=== PATIENT | male | born 1935 | race Caucasian/White ===

== ENCOUNTER 2019-09-23 11:08 | Emergency (ER) | payer MEDICARE, BC ==
--- NOTE | 2019-09-23 12:04 | EDM.PDOC ---
ED HPI GENERAL MEDICAL PROBLEM - General Chief Complaint: Syncope Stated Complaint: [facility] Time Seen by Provider: 09/23/19 11:19 Source of Information: Reports: Patient, Family (), RN Notes Reviewed History Limitations: Reports: No Limitations - History of Present Illness INITIAL COMMENTS - FREE TEXT/NARRATIVE: Patient is an 84-year-old male who is brought into the ED via [facility] for the evaluation of a unresponsive episode at home. At around 1015 this morning, the patient was eating oatmeal for breakfast, and shortly afterwards he told his he was not really feeling well, he began to feel little bit nauseous and felt like he was going to throw up. This was when according to his his eyes rolled into the back of his head, the patient head dropped back and he went unresponsive, she states that this went on for around 5 minutes for what she thought. She was not sure if she should do CPR not, and she states she could not get him on the ground so she given about 10- 20 pumps on the chair, she states that it was mostly into his abdomen however due to him being in the chair. He states that he shortly came to before the ambulance got there. Patient is alert and oriented to place and time and person at this time, there are no obvious neurological deficits noted, he does have a history of a stroke in 2009. Patient's not complaining of any fevers or chills, he has some mild dizziness and a slight headache. The notes that he is acting appropriate for himself, and is not having any worsening deficits noted by herself. - Related Data Allergies Allergy/AdvReac Type Severity Reaction Status Date / Time No Known Allergies Allergy Verified 09/23/19 11:30 Home Meds: Home Meds Clopidogrel [Plavix] 75 mg PO DAILY 09/23/19 [History] Docusate Sodium [Colace] 100 cap PO BID 09/23/19 [History] Famotidine [Acid Controller] 20 mg PO DAILY 09/23/19 [History] Loratadine [Claritin] 20 mg PO DAILY 09/23/19 [History] Metoprolol Succinate [Toprol Xl] 100 mg PO DAILY 09/23/19 [History] Potassium Chloride 10 meq PO DAILY 09/23/19 [History] amLODIPine [Norvasc] 5 mg PO DAILY 09/23/19 [History] hydroCHLOROthiazide [Hydrochlorothiazide] 25 mg PO DAILY 09/23/19 [History] Past Medical History HEENT History: Reports: Cataract, Impaired Vision Other HEENT History: wear glasses Cardiovascular History: Reports: Afib, Hypertension Respiratory History: Reports: Asthma Musculoskeletal History: Reports: Back Pain, Chronic Neurological History: Reports: CVA, Other (See Below) Other Neuro History: dementia. RT sided stroke in 2010 per Psychiatric History: Reports: Dementia - Past Surgical History HEENT Surgical History: Reports: Adenoidectomy, Tonsillectomy GI Surgical History: Reports: Hernia, Inguinal Social & Family History - Tobacco Use Smoking Status *Q: Former Smoker Years of Tobacco use: 10 Used Tobacco, but Quit: Yes Month/Year Tobacco Last Used: 60 years ago - Caffeine Use Caffeine Use: Reports: Coffee, Tea - Recreational Drug Use Recreational Drug Use: No ED ROS GENERAL - Review of Systems Review Of Systems: See Below Constitutional: Reports: Fatigue (states he feels run down). Denies: Fever, Chills Respiratory: Denies: Shortness of Breath Cardiovascular: Denies: Chest Pain Endocrine: Denies: High Glucose, Low Glucose GI/Abdominal: Reports: Nausea. Denies: Abdominal Pain, Vomiting Neurological: Reports: Dizziness (slight, but not more willard normal), Headache ( slight generalized), Pre-Existing Deficit (but not increased from normal per his 's report.), Syncope (5 minute unresponsive episode prior to ambulance arrival). Denies: Confusion, Trouble Speaking, Difficulty Walking Psychiatric: Denies: Confusion - Physical Exam Exam: See Below Exam Limited By: No Limitations General Appearance: Alert, WD/WN, No Apparent Distress Eye Exam: Bilateral Eye: EOMI, Normal Inspection, PERRL Ears: Normal External Exam Nose: Normal Inspection Throat/Mouth: Normal Inspection, Normal Lips, Normal Teeth, Normal Gums, Normal Oropharynx, Normal Voice, No Airway Compromise Head Exam: Atraumatic, Normocephalic Neck: Normal Inspection Respiratory/Chest: No Respiratory Distress, Lungs Clear, Normal Breath Sounds, No Accessory Muscle Use, Chest Non-Tender Cardiovascular: Normal Peripheral Pulses, Regular Rate, Rhythm, No Edema, No Murmur GI/Abdominal: Normal Bowel Sounds, Soft, Non-Tender, No Distention, No Mass Neuro Exam (Abbreviated): Alert, Oriented, CN II-XII Intact (grossly), Normal Cognition, Normal Gait, No Motor/Sensory Deficits Extremities: Normal Inspection, Normal Capillary Refill Psychiatric: Normal Affect, Normal Mood Skin Exam: Warm, Dry, Intact, Normal Color, No Rash EKG INTERPRETATION EKG Date: 09/23/19 Time: 12:14 Rhythm: NSR Rate (Beats/Min): 76 [place]: Normal P-Wave: Present QRS: Normal ST-T: Normal QT: Normal Comparison: NA - No Prior EKG EKG Interpretation Comments: EKG was reviewed by myself and Dr. Turner, no acute changes noted. Course - Vital Signs Last Recorded V/S: Last Vital Signs Temp 97.2 F 09/23/19 11:21 Pulse 75 09/23/19 11:21 Resp 18 09/23/19 11:21 BP 121/69 09/23/19 11:21 Pulse Ox 97 09/23/19 11:21 - Orders/Labs/Meds Orders: Active Orders 24 hr Category Date Time Status EKG Documentation Completion [RC] STAT Care 09/23/19 11:54 Ordered UA W/MICROSCOPIC [URIN] Stat Lab 09/23/19 11:54 Stop Req Labs: Laboratory Tests 09/23/19 09/23/19 Range/Units 12:31 12:31 WBC 6.78 (4.23-9.07) K/mm3 RBC 4.35 L (4.63-6.08) M/mm3 Hgb 12.5 L (13.7-17.5) gm/dl Hct 37.7 L (40.1-51.0) % MCV 86.7 (79.0-92.2) fl MCH 28.7 (25.7-32.2) pg MCHC 33.2 (32.2-35.5) g/dl RDW Std Deviation 41.8 (35.1-43.9) fL Plt Count 208 (163-337) K/mm3 MPV 11.0 (9.4-12.3) fl Neut % (Auto) 76.1 H (34.0-67.9) % Lymph % (Auto) 14.0 L (21.8-53.1) % [place] % (Auto) 9.1 (5.3-12.2) % Eos % (Auto) 0.6 L (0.8-7.0) Baso % (Auto) 0.1 (0.1-1.2) % Neut # (Auto) 5.15 (1.78-5.38) K/mm3 Lymph # (Auto) 0.95 L (1.32-3.57) K/mm3 [place] # (Auto) 0.62 (0.30-0.82) K/mm3 Eos # (Auto) 0.04 (0.04-0.54) K/mm3 Baso # (Auto) 0.01 (0.01-0.08) K/mm3 Sodium 137 (136-145) mEq/L Potassium 3.8 (3.5-5.1) mEq/L Chloride 101 (98-107) mEq/L Carbon Dioxide 28 (21-32) mEq/L Anion Gap 11.8 (5-15) BUN 19 H (7-18) mg/dL Creatinine 1.2 (0.7-1.3) mg/dL Est Cr Clr Drug Dosing TNP Estimated GFR (MDRD) 58 (>60) mL/min BUN/Creatinine Ratio 15.8 (14-18) Glucose 143 H (83-115) mg/dL Calcium 9.0 (8.5-10.1) mg/dL Magnesium 2.2 (1.8-2.4) mg/dl Total Bilirubin 0.4 (0.2-1.0) mg/dL AST 17 (15-37) U/L ALT 22 (16-63) U/L Alkaline Phosphatase 67 (46-116) U/L Troponin I < 0.017 (0.00-0.056) ng/mL Total Protein 7.3 (6.4-8.2) g/dl Albumin 3.6 (3.4-5.0) g/dl Globulin 3.7 gm/dL Albumin/Globulin Ratio 1.0 (1-2) - Re-Assessments/Exams Free Text/Narrative Re-Assessment/Exam: 09/23/19 12:06 Patient presents to the ED for the evaluation of unresponsive episode at home. I have ordered labs to include CBC, CMP, magnesium, troponin, urinalysis, EKG chest x-ray and a head CT for further evaluation. 09/23/19 12:49 Labs are still pending, head CT is back and demonstrates no acute abnormalities at this time. There is mild senescent changes noted, with some mild small vessel ischemic demyelination change. 09/23/19 13:58 X-ray demonstrates no acute changes well, laboratory evaluation demonstrates no acute abnormalities that would be causing the patient's unresponsive episode. I question whether or not the patient had maybe a lack of blood flow to his brain due to the atherosclerotic disease. We will have him follow-up with his primary care provider for possible carotid ultrasound to see if this might be causing him some ischemic type issues. Patient was not having any complaints when he was reassessed at bedside, states he is feeling well enough and would like to go home at this time I do not see any sort of emergent considerations that he would need to stay here any longer, I will discharge him home with general recommendations. Departure - Departure Time of Disposition: 13:59 Disposition: Home, Self-Care 01 Condition: Fair Clinical Impression: Unresponsive episode - Discharge Information *PRESCRIPTION DRUG MONITORING PROGRAM REVIEWED*: No *COPY OF PRESCRIPTION DRUG MONITORING REPORT IN PATIENT ANJU: No Referrals: PCP,Unknown [Primary Care Provider] - Forms: ED Department Discharge Additional Instructions: You were evaluated in the ED today for your unresponsive episode you had at home. You had a head CT, EKG, chest x-ray, and further laboratory evaluation and these all were within normal limits, however your head CT demonstrated some atherosclerotic change, which is kind of a narrowing of the blood vessels leading to your head. I suspect that may be that you had a lack of blood flow to your brain today, that may have caused you to have an unresponsive episode. Recommend you talk the possibility of a carotid ultrasound over with your primary care provider, you may call their office on Thursday to try to line this up if you should desire to evaluate this further. I do recommend that you have a follow-up appointment with your primary care provider sometime within the next week to make sure that you are feeling okay and symptoms are improving as expected. Please try to keep yourself well-hydrated and eat some decent meals over the weekend. Please return to the ER at any time if your symptoms change or worsen. Sepsis Event Note - Evaluation Sepsis Screening Result: No Definite Risk - Focused Exam Vital Signs: Vital Signs Temp Pulse Resp BP Pulse Ox 09/23/19 11:21 97.2 F 75 18 121/69 97 Date Exam was Performed: 09/23/19 Time Exam was Performed: 13:58 - My Orders Last 24 Hours: My Active Orders 09/23/19 11:54 EKG Documentation Completion [RC] STAT UA W/MICROSCOPIC [URIN] Stat - Assessment/Plan Last 24 Hours: My Active Orders 09/23/19 11:54 EKG Documentation Completion [RC] STAT UA W/MICROSCOPIC [URIN] Stat
--- NOTE | 2019-09-23 12:39 | CT ---
Head CT Technique: Multiple axial sections through the brain were obtained. Intravenous contrast was not utilized. Comparison: Prior MRI brain of 08/30/[address] study also performed on 08/30/10. Findings: Ventricles along with basal cisterns and sulci over the convexities appear moderately prominent. Diminished density is noted within the periventricular and subcortical white matter which is most likely due to small vessel ischemic demyelination change. No other abnormal parenchymal densities are seen. No evidence of intracranial hemorrhage. No midline shift or mass effect is seen. Slight atherosclerotic calcification is seen within the vertebral vessels within the carotid siphon. Bone window settings were reviewed. No acute calvarial abnormality is appreciated. Visualized mastoid sinuses and visualized paranasal sinuses show nothing acute. Impression: 1. Senescent change as noted above. 2. Nothing acute is appreciated on noncontrast head CT exam. Diagnostic code #2 Study was dictated in [place] Standard Time
--- NOTE | 2019-09-23 13:18 | CR ---
Chest: Portable view of the chest was obtained. Comparison: Prior chest x-ray of 08/30/10. Mild bibasilar atelectasis is seen. Lungs otherwise are clear. Heart size is within normal limits for portable technique. Tortuous thoracic aorta is seen. Bony structures are grossly intact. Impression: 1. Mild bibasilar atelectasis. 2. Nothing acute is appreciated on portable chest x-ray. Diagnostic code #2 Study was dictated in [place] Standard Time
== END 2019-09-23 14:11 | disposition home or self-care (01) ==
LOC: JD.ED 11:08
DX: R55 Syncope and collapse (principal); I48.91 Unspecified atrial fibrillation; I10 Essential (primary) hypertension; J45.909 Unspecified asthma, uncomplicated; Z79.01 Long term (current) use of anticoagulants; Z79.899 Other long term (current) drug therapy; Z86.73 Personal history of transient ischemic attack (TIA), and cerebral infarction without residual deficits; Z87.891 Personal history of nicotine dependence
CPT/HCPCS: 36415; 70450; 70450-26; 71045; 71045-26; 80053; 83735; 84484; 85025; 93005; 93010; 99283; 99285-25

== ENCOUNTER 2020-08-18 05:21 | Emergency (ER) | payer MEDICARE, BC ==
[2020-08-18] MEDS ORDERED: Sodium Chloride 0.9% 1,000 ML IV ONE (06:02)
--- NOTE | 2020-08-18 06:03 | EDM.PDOC ---
ED HPI GENERAL MEDICAL PROBLEM - General Source of Information: Reports: Patient, Family () History Limitations: Reports: Physical Impairment (Patient has dementia and is unable to provide any meaningful history) <Blanco Calvo - Last Filed: 08/18/20 07:32> <AmandaDeshawn duncan - Last Filed: 08/18/20 15:04> - General Chief Complaint: Syncope Stated Complaint: [facility] Time Seen by Provider: 08/18/20 05:55 - History of Present Illness INITIAL COMMENTS - FREE TEXT/NARRATIVE: Mr. Nelson is a pleasant 85-year-old gentleman who is now brought to the ED by EMS after suffering a syncopal episode at home. The patient has significant dementia and is unable to provide any meaningful history, however, his tells me that he showered around 4:00 this morning, and that after he got out of the shower, his sat him down on a stool, then he became unresponsive for 5 to 10 minutes. She held him up, therefore he did not fall and was uninjured. She tells me that he has had numerous syncopal episode, and she handed me a sheet of the dates where this is occurred, including 08/05/2020, 08/10/2020, 08/11/2020, 08/16/2020, and 08/17/2020. Our medical records finds that the patient has been to this ED only once before, on 09/23/2019, also for a syncopal episode. A work-up at that time was grossly unremarkable. The patient's tells me that the patient's PCP believes that the patient is suffering from a vagal syncope related to heartburn or some other stomach ailment, that if it continues to occur, that something will need to be done. She tells me that the patient is already on Prilosec (medical records indicate that he is actually on famotidine). Here in the ED, the patient's initial BP is found to be modestly elevated at 150/91, with slight tachypnea of 22 rpm. He is afebrile, saturating 95% on room air. Other than the patient's recurrent syncopal episodes, the patient's denies that the patient has had a recent fever, chills, sore throat, ear pain, nasal or sinus congestion, cough, dyspnea, chest pain, palpitations, nausea, vomiting, constipation, diarrhea, abdominal pain, urinary symptoms, recent weight gain or weight loss, recent bloody bowel movements or black bowel movements, recent joint aches, headaches, or rashes. The patient's PCP is Dr. Bernabe Weaver. His pulmonary midlevel is Alex Lozano NP. He already received an influenza vaccine this season. (Blanco Calvo) - Related Data Allergies Allergy/AdvReac Type Severity Reaction Status Date / Time No Known Allergies Allergy Verified 08/18/20 05:26 Home Meds: Home Meds Clopidogrel [Plavix] 75 mg PO DAILY 09/23/19 [History] Docusate Sodium [Colace] 100 cap PO BID 09/23/19 [History] Famotidine [Acid Controller] 20 mg PO DAILY 09/23/19 [History] Loratadine [Claritin] 20 mg PO DAILY 09/23/19 [History] Metoprolol Succinate [Toprol Xl] 100 mg PO DAILY 09/23/19 [History] Potassium Chloride 10 meq PO DAILY 09/23/19 [History] amLODIPine [Norvasc] 5 mg PO DAILY 09/23/19 [History] hydroCHLOROthiazide [Hydrochlorothiazide] 25 mg PO DAILY 09/23/19 [History] Lansoprazole [Prevacid 24Hr] 30 mg PO DAILY #42 capsule. 08/18/20 [Rx] Past Medical History HEENT History: Reports: Allergic Rhinitis, Impaired Vision (wears glasses) Cardiovascular History: Reports: Afib, Hypertension Neurological History: Reports: CVA (2009, with left hemiparesis), Other (See Below) (Dementia) - Past Surgical History HEENT Surgical History: Reports: Adenoidectomy, Cataract Surgery (bilateral), Tonsillectomy GI Surgical History: Reports: Hernia, Inguinal (left) <Blanco Calvo - Last Filed: 08/18/20 07:32> Social & Family History - Tobacco Use Tobacco Use Status *Q: Former Tobacco User Years of Tobacco use: 20 Packs/Tins Daily: 1 Month/Year Tobacco Last Used: Quit around 1970 - Caffeine Use Caffeine Use: Reports: Coffee, Tea - Alcohol Use Alcohol Use History: Yes Alcohol Use Frequency: Rarely - Recreational Drug Use Recreational Drug Use: No - Living Situation & Occupation Living situation: Reports: , with Spouse Occupation: Retired <Blanco Calvo - Last Filed: 08/18/20 07:32> ED ROS GENERAL - Review of Systems Review Of Systems: Comprehensive ROS is negative, except as noted in HPI. <Blanco Calvo - Last Filed: 08/18/20 07:32> - Physical Exam Exam: See Below Exam Limited By: No Limitations General Appearance: Alert, No Apparent Distress, Thin Eye Exam: Bilateral Eye: EOMI, Normal Inspection Ears: Normal External Exam, Hearing Grossly Normal Nose: Normal Inspection Throat/Mouth: Normal Inspection, Normal Lips, Normal Voice, No Airway Compromise Head Exam: Atraumatic, Normocephalic Neck: Normal Inspection, Full Range of Motion Respiratory/Chest: No Respiratory Distress, Lungs Clear, Normal Breath Sounds, No Accessory Muscle Use Cardiovascular: Normal Peripheral Pulses, No Edema, No Gallop, No JVD, No Murmur, No Rub, Irregularly Irregular (regular rate) GI/Abdominal: Normal Bowel Sounds, Soft, Non-Tender, No Organomegaly, No Distention, No Abnormal Bruit, No Mass Neuro Exam (Abbreviated): Alert, No Motor/Sensory Deficits, Disoriented (Believes the ear is 1998, the month "fall") Back Exam: Normal Inspection, Full Range of Motion, NT Extremities: Normal Inspection, Normal Range of Motion, Non-Tender, No Pedal Edema, Normal Capillary Refill Psychiatric: Normal Affect, Normal Mood Skin Exam: Warm, Dry, Intact, Normal Color, No Rash <Blanco Calvo - Last Filed: 08/18/20 07:32> #1 Interpretation EKG Date: 08/18/20 Time: 05:30 Rhythm: A-Fib (rate controlled, with several sinus beats) Rate (Beats/Min): 71 [place]: Normal P-Wave: Variable QRS: Other (Early transition) ST-T: Normal QT: Normal Comparison: No Change (Was likely in atrial fibrillation, only, on 09/23/2019) <Blanco Calvo - Last Filed: 08/18/20 07:32> Course <Blanco Calvo - Last Filed: 08/18/20 07:32> <Deshawn Patel - Last Filed: 08/18/20 15:04> - Vital Signs Last Recorded V/S: Last Vital Signs Temp 36.4 C 12/26/20 05:26 Pulse 73 08/18/20 05:26 Resp 22 H 08/18/20 05:26 BP 150/91 H 08/18/20 05:26 Pulse Ox 95 08/18/20 05:26 Orthostatic Blood Pressure [ 137/89 Sitting] Orthostatic Blood Pressure [ 138/87 Standing] Orthostatic Blood Pressure [ 117/82 Supine] - Orders/Labs/Meds Orders: Active Orders 24 hr Category Date Time Status UA W/MICROSCOPIC [URIN] Stat Lab 08/18/20 05:38 Ordered Labs: Laboratory Tests 08/18/20 08/18/20 08/18/20 Range/Units 05:35 05:35 05:35 WBC 9.99 H (4.23-9.07) K/mm3 RBC 4.05 L (4.63-6.08) M/mm3 Hgb 11.8 L (13.7-17.5) gm/dl Hct 35.3 L (40.1-51.0) % MCV 87.2 (79.0-92.2) fl MCH 29.1 (25.7-32.2) pg MCHC 33.4 (32.2-35.5) g/dl RDW Std Deviation 39.7 (35.1-43.9) fL Plt Count 216 (163-337) K/mm3 MPV 11.3 (9.4-12.3) fl Neutrophils % (Manual) 79 H (40-60) % Band Neutrophils % 0 (0-10) % Lymphocytes % (Manual) 14 L (20-40) % Atypical Lymphs % 0 % Monocytes % (Manual) 6 (2-10) % Eosinophils % (Manual) 0 L (0.8-7.0) % Basophils % (Manual) 1 (0.2-1.2) Platelet Estimate Adequate Hypochromasia 1+ slight Anisocytosis 2+ moderate Microcytosis 1+ slight RBC Morph Comment Abnormal D-Dimer, Quantitative 7.16 H (0.19-0.50) mg/L Sodium 142 (136-145) mEq/L Potassium 3.5 (3.5-5.1) mEq/L Chloride 104 (98-107) mEq/L Carbon Dioxide 28 (21-32) mEq/L Anion Gap 13.5 (5-15) BUN 19 H (7-18) mg/dL Creatinine 1.2 (0.7-1.3) mg/dL Est Cr Clr Drug Dosing 48.19 mL/min Estimated GFR (MDRD) 57 (>60) mL/min BUN/Creatinine Ratio 15.8 (14-18) Glucose 169 H (83-115) mg/dL Calcium 8.6 (8.5-10.1) mg/dL Magnesium 1.9 (1.8-2.4) mg/dl Total Bilirubin 0.5 (0.2-1.0) mg/dL AST 16 (15-37) U/L ALT 20 (16-63) U/L Alkaline Phosphatase 61 (46-116) U/L Troponin I < 0.017 (0.00-0.056) ng/mL Total Protein 7.4 (6.4-8.2) g/dl Albumin 3.2 L (3.4-5.0) g/dl Globulin 4.2 gm/dL Albumin/Globulin Ratio 0.8 L (1-2) Meds: Medications Discontinued Medications Generic Name Dose Route Start Last Admin Trade Name Freq PRN Reason Stop Dose Admin Sodium Chloride 1,000 mls @ 999 mls/hr 08/18/20 06:02 08/18/20 06:16 Normal Saline IV 08/18/20 07:02 999 mls/hr ONETIME ONE Administration Sodium Chloride 100 mls @ 60 mls/sec 08/18/20 08:15 Normal Saline IV ASDIRECTED [facility] Iopamidol 100 ml 08/18/20 08:06 Isovue-370 (76%) IVPUSH 08/18/20 08:07 ONETIME ONE Sodium Chloride 10 ml 08/18/20 08:15 Saline Flush FLUSH BOLUS [facility] - Re-Assessments/Exams Free Text/Narrative Re-Assessment/Exam: 08/18/20 06:02 Strictly speaking, the patient is not orthostatic, however, he is extremely close, therefore I have ordered a 1 L bolus of IV fluid, to be followed by repeat orthostatics. 08/18/20 06:50 Portable chest radiograph appears to be grossly normal. The cardiac silhouette is within normal limits. No pulmonary vascular congestion. No pleural effusions seen on this AP view. No focal infiltrate. No pneumothorax. Formal read per the Radiologist pending. The patient's CBC is remarkable for a WBC count slightly elevated at 9.99, but with 0% bandemia. His H/H is slightly depressed at 11.8/35.3, with the remainder of his CBC being unremarkable. His CMP is remarkable for a bicarbonate slightly depressed at 19, and hyperglycemia of 169, with the remainder of his CMP being unremarkable. His magnesium level is within normal limits at 1.9. His troponin is undetectably low. His D-dimer is substantially elevated at 7.16. The patient has not yet provided a urine sample. Based on the above, I have ordered a CT angiogram of the chest to evaluate for PE. 08/18/20 07:[address] Neumann, and care of the patient turned over to him at this time, for change of shift. (Blanco Calvo) 08/18/20 08:09 care of this patient was assumed from Dr. Calvo at change of shift. Due to his markedly elevated D-dimer on laboratory assessment at 7.15 CT pulmonary angiogram of the chest was performed. On my assessment there is no evidence of pulmonary emboli on either side. There is mild cardiomegaly. There is marked atherosclerosis throughout the arch of the aorta and descending aorta. No aneurysm identified. Minimal basilar atelectasis appreciated bilaterally slightly worse on the left side. Visualized portions of the abdominal organs show no significant hepatomegaly or intraductal dilatation. Gallbladder does not contain obvious calcified gallstones. Pancreas is atrophic. Stomach appears normal he does have a mild to moderate hiatal hernia. Both kidneys are visualized and show some calcification within the right kidney. Both kidneys show atrophy of the cortex. Adrenal glands appear normal. 08/18/20 08:45 recheck on the patient's orthostatic blood pressures reveal supine blood pressure to be 117/82 with a heart rate of 84. Sitting BP 137/89 with a heart rate of 86 and standing BP 138/87 with a heart rate of 89. Patient did feel slightly dizzy after assuming the sitting position from lying down. (Deshawn Patel) Free Text/Narrative Re-Assessment/Exam: 08/18/20 09:50 radiologist over read is now available on the CT pulmonary angiogram performed on this patient. Thoracic aorta shows atherosclerotic calcification with no aneurysm. Pulmonary arteries are well-opacified and show no filling defects to indicate pulmonary embolism. Coronary artery calcification is seen. Small hiatal hernia seen with slight thickening of the distal esophageal wall. Other very visualized abdominal structures showed no other acute abnormality. Mediastinum shows no adenopathy. No axial adenopathy noted. Lung window settings were reviewed which show emphysematous changes. Mild areas of increased density posteriorly within both lung bases most likely representing slight atelectasis and scarring. Linear density noted within the right lung base compatible with scar. Nothing acute is defined in either lung. Lung window settings were reviewed which show several old healed right lower rib fractures. Scattered disc space narrowing and endplate spurring is noted within the spine. 08/18/20 10:10 on consultation with the patient and his he has been having recurrent vomiting episodes and complaining of heartburn vigorously over the last 10 days. He is on Pepcid 20 mg daily which does not seem to be helping. I am going to place him on Prilosec 20 mg daily as well. Patient's reports that he has had 4 syncopal events almost all while seated over the last 10 days. This suggests autonomic nervous system dysfunction versus cardiac etiology. He is been in sinus rhythm at 85/min since admission to the ED with no signs of an arrhythmia as a potential cause for his loss of consciousness. Patient reports that this morning he lost consciousness for between 5 and 10 minutes. This likely is related to autonomic nervous system dysfunction. I am going to discontinue his hydrochlorothiazide and amlodipine for the next 2 weeks as a trial to see if this makes a difference. The he was diagnosed with orthostatic hypotension upon evaluation in the ED this morning. He will maintain his metoprolol 100 mg once daily in the morning. His next appointment with physician is not till January and was instructed to get an appointment within the next 7 to 10 days for reevaluation. If he continues to pass out he could be having occult seizures and an EEG may be indicated. I did not place him on a Holter monitor this time since evaluation in the ED for over 3 hours did not reveal any cardiac arrhythmias. (Deshawn Patel) Departure <Blanco Calvo - Last Filed: 08/18/20 07:32> - Departure Time of Disposition: 10:13 Condition: Fair - Discharge Information *PRESCRIPTION DRUG MONITORING PROGRAM REVIEWED*: Not Applicable *COPY OF PRESCRIPTION DRUG MONITORING REPORT IN PATIENT ANJU: Not Applicable <Deshawn Patel - Last Filed: 08/18/20 15:04> - Departure Disposition: Home, Self-Care 01 Clinical Impression: Recurrent syncope, Dysfunctional autonomic nervous system Dementia Qualifiers: Dementia type: Alzheimer's disease Alzheimer's disease onset: late-onset Dementia behavioral disturbance: without behavioral disturbance Qualified Code(s): G30.1 - Alzheimer's disease with late onset; F02.80 - Dementia in other diseases classified elsewhere without behavioral disturbance Syncope Qualifiers: Syncope type: unspecified Qualified Code(s): R55 - Syncope and collapse - Discharge Information Prescriptions: Lansoprazole [Prevacid 24Hr] 30 mg PO DAILY #42 capsule.dr Instructions: Dementia, Syncope Referrals: PCP,None [Primary Care Provider] - Forms: ED Department Discharge Additional Instructions: Evaluation in the emergency room this morning primarily by Dr. Calvo due to a syncopal event which means loss of consciousness and collapse after getting out of the shower at 4:00 this morning. As you indicated to me he has had multiple similar events almost all who will a seated over the last 10 to 14 days. As you indicated you can sometimes tell it he is going to pass out as he gets a staring look in his eyes and then loses consciousness. No reported jerking movements to suggest a seizure although this is a possibility due to age related brain disease and dementia. Evaluation in the emergency room revealed that his blood pressure did fall when he stood up indicating what we call orthostatic hypotension. This could be caused by volume loss such as not eating or drinking as well as when should or by blood pressure medications of course. It is my suggestion to to discontinue his hydrochlorothiazide tablet and the amlodipine 5 mg tablet for the next 2 weeks to see if there is an improvement in the syncopal events. Secondly identified problem with recurrent vomiting after trying to eat. Suggest continuing the Pepcid 20 mg in the morning and introduce Prevacid 30 mg tablet once daily every night at bedtime to relieve heartburn discomfort. Please arrange an appointment to see your primary care physician within the next 7 to 10 days. If symptoms persist an EEG of the brain should be done to rule out an atypical seizure that is causing him to lose consciousness. If symptoms of upper GI discomfort and vomiting persist he will also likely need an upper GI endoscopy or scope. Sepsis Event Note (ED) - Evaluation Sepsis Screening Result: No Definite Risk <Blanco Calvo - Last Filed: 08/18/20 07:32> - Focused Exam Vital Signs: Vital Signs Temp Pulse Resp BP Pulse Ox 08/18/20 05:26 36.4 C 73 22 H 150/91 H 95
[2020-08-18] MEDS ORDERED: Iopamidol 755 Mg/ML 100 ML Bottle IVPUSH ONE (08:06)
[2020-08-18] MEDS ORDERED: Sodium Chloride 0.9% 10 ML Syringe FLUSH SCH (08:15)
[2020-08-18] MEDS ORDERED: Sodium Chloride 0.9% 100 ML IV SCH (08:15)
--- NOTE | 2020-08-18 09:48 | CT ---
CT chest Technique: Multiple axial sections through the chest were obtained. Intravenous contrast was utilized. Study has been performed as a pulmonary angiogram protocol. Reconstructed coronal and sagittal images were obtained. Comparison: No prior chest CT is available, previous chest x-ray performed earlier on the same day. Findings: Thoracic aorta shows atherosclerotic calcification with no aneurysm. Pulmonary arteries are well opacified and show no filling defects to indicate pulmonary embolism. Coronary artery calcification is seen. Small hiatal hernia is seen with slight thickening of the distal esophageal wall. Other visualized abdominal structures showed no other acute abnormality. Mediastinum shows no adenopathy. No axillary adenopathy is seen. Lung window settings were reviewed which show emphysematous change. Mild areas of increased density posteriorly within both lung bases most likely representing slight atelectasis and scarring. Linear density noted within the right lung base compatible with scarring. Nothing acute is definitely appreciated within either lung. Bone window settings were reviewed which show several old healed right lower rib fractures. Scattered disc space narrowing and endplate spurring is noted within the spine. Impression: 1. No findings of pulmonary embolism. 2. Slight areas of increased density posteriorly within both lung bases most likely representing atelectasis and fibrosis. Linear area of fibrosis is seen within the right lung base. 3. Small hiatal hernia with slight thickening of the distal esophageal wall most likely relating to mild reflux esophagitis. 4. Emphysematous change and other chronic findings as noted above. Diagnostic code #3
--- NOTE | 2020-08-18 09:52 | CR ---
Chest: Portable view of the chest was obtained. Comparison: Prior chest x-ray of 09/23/19. Heart size is normal. Tortuous thoracic aorta is seen. Minimal linear density within the right lung base compatible with slight scarring. Lungs otherwise are clear. Bony structures are grossly intact. Impression: 1. Nothing acute is appreciated on portable chest x-ray. Diagnostic code #2
== END 2020-08-18 11:15 | disposition home or self-care (01) ==
LOC: JD.ED 05:21
DX: R55 Syncope and collapse (principal); G30.1 Alzheimer's disease with late onset; F02.80 Dementia in other diseases classified elsewhere, unspecified severity, without behavioral disturbance, psychotic disturbance, mood disturbance, and anxiety; I10 Essential (primary) hypertension; I48.91 Unspecified atrial fibrillation; G90.9 Disorder of the autonomic nervous system, unspecified; Z86.73 Personal history of transient ischemic attack (TIA), and cerebral infarction without residual deficits; Z90.49 Acquired absence of other specified parts of digestive tract; Z79.02 Long term (current) use of antithrombotics/antiplatelets; Z79.899 Other long term (current) drug therapy; Z87.891 Personal history of nicotine dependence
CPT/HCPCS: 36415; 71045; 71275; 80053; 83735; 84484; 85007; 85027; 85379; 93005; 99285; J7030

== ENCOUNTER 2020-09-24 16:38 | Inpatient (IN) | payer MEDICARE, BC ==
[2020-09-24] MEDS ORDERED: Sodium Chloride 0.9% 10 ML Syringe FLUSH PRN (16:43)
[2020-09-24] MEDS ORDERED: Sodium Chloride 0.9% 1,000 ML IV SCH (16:45)
[2020-09-24] MEDS ORDERED: cefTRIAXone 2 GM in Sodium Chloride 0.9% 100 ML IV ONE (16:45)
--- NOTE | 2020-09-24 17:42 | EDM.PDOC ---
ED HPI GENERAL MEDICAL PROBLEM - General Chief Complaint: General Stated Complaint: [facility] Time Seen by Provider: 09/24/20 16:39 Source of Information: Reports: EMS History Limitations: Reports: Altered Mental Status - History of Present Illness INITIAL COMMENTS - FREE TEXT/NARRATIVE: The patient presents by [facility] for confusion and combativeness. The patient lives at home with his and he normally gets around on his own but he is slightly confused. For the past couple of days he has not gotten out of bed. He was diagnosed with a UTI a couple weeks ago. He was on antibiotics. His family thinks he may have another UTI. He has no cough or fever. He has no vomiting He has generalized weakness. The patient could not get up on his own and he was combative where he was grabbing at EMS. He was given ativan 1mg IV. Onset: Gradual Duration: Day(s): Severity: Moderate Improves with: Reports: None Worsens with: Reports: None Associated Symptoms: Reports: No Other Symptoms Treatments SYSTEMS LIBRARIAN: Reports: IV/IO - Related Data Allergies Allergy/AdvReac Type Severity Reaction Status Date / Time No Known Allergies Allergy Verified 09/24/20 17:13 Home Meds: Home Meds Clopidogrel [Plavix] 75 mg PO DAILY 09/23/19 [History] Docusate Sodium [Colace] 100 cap PO BID 09/23/19 [History] Famotidine [Acid Controller] 20 mg PO DAILY 09/23/19 [History] Loratadine [Claritin] 20 mg PO DAILY 09/23/19 [History] Metoprolol Succinate [Toprol Xl] 100 mg PO DAILY 09/23/19 [History] Potassium Chloride 10 meq PO DAILY 09/23/19 [History] Cholecalciferol (Vitamin D3) [Vitamin D3] 10 mcg PO DAILY 09/24/20 [History] Docusate Sodium 250 mg PO DAILY PRN 09/24/20 [History] hydroCHLOROthiazide [Hydrochlorothiazide] 25 mg PO DAILY 09/24/20 [History] Past Medical History HEENT History: Reports: Allergic Rhinitis, Impaired Vision Other HEENT History: wear glasses Cardiovascular History: Reports: Afib, Hypertension Respiratory History: Reports: Asthma Genitourinary History: Reports: UTI, Recurrent Musculoskeletal History: Reports: Back Pain, Chronic Neurological History: Reports: CVA, Other (See Below) Other Neuro History: dementia. RT sided stroke in 2010 per Psychiatric History: Reports: Dementia - Past Surgical History HEENT Surgical History: Reports: Adenoidectomy, Cataract Surgery, Tonsillectomy GI Surgical History: Reports: Hernia, Inguinal Social & Family History - Tobacco Use Tobacco Use Status *Q: Current Status Unknown - Caffeine Use Caffeine Use: Reports: Coffee, Tea Caffeine Use Comment: Unknown. - Living Situation & Occupation Living situation: Reports: , with Spouse Occupation: Retired ED ROS GENERAL - Review of Systems Review Of Systems: Unable To Obtain Reason Not Obtained: Decreased responsiveness ED EXAM, GENERAL - Physical Exam Exam: See Below Exam Limited By: Altered Mental Status General Appearance: Other (responds to verbal stimuli) Eye Exam: Bilateral Eye: PERRL Ears: Normal External Exam Nose: Normal Inspection Head: Atraumatic, Normocephalic Neck: Normal Inspection, Supple, Non-Tender Respiratory/Chest: No Respiratory Distress, Lungs Clear, Normal Breath Sounds Cardiovascular: Regular Rate, Rhythm, No Edema, No Murmur GI/Abdominal: Soft, Non-Tender, No Organomegaly, No Mass Back Exam: Normal Inspection Extremities: Normal Inspection Neurological: Other (Patient does respond verbally to painfull stimuli. It appears he is taking his medications.) #1 Interpretation EKG Date: 09/24/20 Time: 17:42 Rhythm: NSR Rate (Beats/Min): 78 [place]: Normal P-Wave: Present QRS: Normal ST-T: Normal QT: Normal Course - Vital Signs Last Recorded V/S: Last Vital Signs Temp 96.3 F L 09/24/20 16:40 Pulse 85 09/24/20 18:15 Resp 16 09/24/20 16:40 BP 164/120 H 09/24/20 18:15 Pulse Ox 100 09/24/20 18:15 - Orders/Labs/Meds Orders: Active Orders 24 hr Category Date Time Status Cardiac Monitoring [RC] . DIRECTED Care 09/24/20 16:43 Active EKG Documentation Completion [RC] STAT Care 09/24/20 16:44 Active Insert Urinary Catheter [OM.PC] Stat Care 09/24/20 16:50 Ordered Oxygen Therapy [RC] PRN Care 09/24/20 16:43 Active Peripheral IV Care [RC] . DIRECTED Care 09/24/20 16:44 Active Urinary Catheter Assessment [RC] ASDIRECTED Care 09/24/20 17:52 Active CULTURE BLOOD [BC] Stat Lab 09/24/20 17:08 Received CULTURE BLOOD [BC] Stat Lab 09/24/20 17:14 Received Sodium Chloride 0.9% [Normal Saline] 1,000 ml Med 09/24/20 16:45 Active IV ASDIRECTED Sodium Chloride 0.9% [Saline Flush] Med 09/24/20 16:43 Active 10 ml FLUSH ASDIRECTED PRN Blood Culture x2 Reflex Set [OM.PC] Stat Oth 09/24/20 16:45 Ordered Peripheral IV Insertion Adult [OM.PC] Stat Oth 09/24/20 16:43 Ordered Medication Orders Sodium Chloride (Normal Saline) 1,000 mls @ 125 mls/hr IV ASDIRECTED SAMI Last Admin: 09/24/20 17:20 Dose: 125 mls/hr Documented by: TIKI Sodium Chloride (Saline Flush) 10 ml FLUSH ASDIRECTED PRN PRN Reason: Keep Vein Open Last Admin: 09/24/20 17:37 Dose: 10 ml Documented by: TIKI Labs: Laboratory Tests 09/24/20 09/24/20 09/24/20 Range/Units 16:50 16:52 17:08 WBC 7.61 (4.23-9.07) K/mm3 RBC 4.30 L (4.63-6.08) M/mm3 Hgb 12.1 L (13.7-17.5) gm/dl Hct 36.9 L (40.1-51.0) % MCV 85.8 (79.0-92.2) fl MCH 28.1 (25.7-32.2) pg MCHC 32.8 (32.2-35.5) g/dl RDW Std Deviation 42.6 (35.1-43.9) fL Plt Count 220 (163-337) K/mm3 MPV 11.0 (9.4-12.3) fl Neut % (Auto) 78.7 H (34.0-67.9) % Lymph % (Auto) 12.6 L (21.8-53.1) % Wilkes % (Auto) 7.8 (5.3-12.2) % Eos % (Auto) 0.5 L (0.8-7.0) Baso % (Auto) 0.1 (0.1-1.2) % Neut # (Auto) 5.99 H (1.78-5.38) K/mm3 Lymph # (Auto) 0.96 L (1.32-3.57) K/mm3 Wilkes # (Auto) 0.59 (0.30-0.82) K/mm3 Eos # (Auto) 0.04 (0.04-0.54) K/mm3 Baso # (Auto) 0.01 (0.01-0.08) K/mm3 PT (9.7-12.0) SECONDS INR APTT (21.7-31.4) SECONDS Sodium (136-145) mEq/L Potassium (3.5-5.1) mEq/L Chloride (98-107) mEq/L Carbon Dioxide (21-32) mEq/L Anion Gap (5-15) BUN (7-18) mg/dL Creatinine (0.7-1.3) mg/dL Est Cr Clr Drug Dosing mL/min Estimated GFR (MDRD) (>60) mL/min BUN/Creatinine Ratio (14-18) Glucose (83-115) mg/dL Lactic Acid (0.4-2.0) mmol/L Calcium (8.5-10.1) mg/dL Magnesium (1.8-2.4) mg/dl Total Bilirubin (0.2-1.0) mg/dL AST (15-37) U/L ALT (16-63) U/L Alkaline Phosphatase (46-116) U/L Troponin I (0.00-0.056) ng/mL C-Reactive Protein (<1.0) mg/dL Total Protein (6.4-8.2) g/dl Albumin (3.4-5.0) g/dl Globulin gm/dL Albumin/Globulin Ratio (1-2) Urine Color Yellow (Yellow) Urine Appearance Clear (Clear) Urine pH 7.0 (5.0-8.0) Ur Specific [place] 1.020 (1.005-1.030) Urine Protein Negative (Negative) Urine Glucose (UA) Negative (Negative) Urine Ketones Negative (Negative) Urine Occult Blood 1+ H (Negative) Urine Nitrite Negative (Negative) Urine Bilirubin Negative (Negative) Urine Urobilinogen 0.2 (0.2-1.0) Ur Leukocyte Esterase Negative (Negative) Urine RBC 5-10 H (0-5) /hpf Urine WBC 0-5 (0-5) /hpf Ur Squamous Epith Cells 0-5 (0-5) /hpf Urine Bacteria Few (FEW) /hpf Urine Mucus Few (FEW) /hpf SARS-CoV-2 RNA (JAGDEEP) Negative (NEGATIVE) 09/24/20 09/24/20 09/24/20 Range/Units 17:08 17:08 17:08 WBC (4.23-9.07) K/mm3 RBC (4.63-6.08) M/mm3 Hgb (13.7-17.5) gm/dl Hct (40.1-51.0) % MCV (79.0-92.2) fl MCH (25.7-32.2) pg MCHC (32.2-35.5) g/dl RDW Std Deviation (35.1-43.9) fL Plt Count (163-337) K/mm3 MPV (9.4-12.3) fl Neut % (Auto) (34.0-67.9) % Lymph % (Auto) (21.8-53.1) % Wilkes % (Auto) (5.3-12.2) % Eos % (Auto) (0.8-7.0) Baso % (Auto) (0.1-1.2) % Neut # (Auto) (1.78-5.38) K/mm3 Lymph # (Auto) (1.32-3.57) K/mm3 Wilkes # (Auto) (0.30-0.82) K/mm3 Eos # (Auto) (0.04-0.54) K/mm3 Baso # (Auto) (0.01-0.08) K/mm3 PT 11.4 (9.7-12.0) SECONDS INR 1.07 APTT 27.2 (21.7-31.4) SECONDS Sodium 138 (136-145) mEq/L Potassium 3.9 (3.5-5.1) mEq/L Chloride 99 (98-107) mEq/L Carbon Dioxide 26 (21-32) mEq/L Anion Gap 16.9 H (5-15) BUN 13 (7-18) mg/dL Creatinine 1.0 (0.7-1.3) mg/dL Est Cr Clr Drug Dosing 49.58 mL/min Estimated GFR (MDRD) > 60 (>60) mL/min BUN/Creatinine Ratio 13.0 L (14-18) Glucose 133 H (83-115) mg/dL Lactic Acid 1.3 (0.4-2.0) mmol/L Calcium 8.9 (8.5-10.1) mg/dL Magnesium 1.9 (1.8-2.4) mg/dl Total Bilirubin 0.6 (0.2-1.0) mg/dL AST 12 L (15-37) U/L ALT 10 L (16-63) U/L Alkaline Phosphatase 70 (46-116) U/L Troponin I < 0.017 (0.00-0.056) ng/mL C-Reactive Protein 0.7 (<1.0) mg/dL Total Protein 7.6 (6.4-8.2) g/dl Albumin 3.7 (3.4-5.0) g/dl Globulin 3.9 gm/dL Albumin/Globulin Ratio 1.0 (1-2) Urine Color (Yellow) Urine Appearance (Clear) Urine pH (5.0-8.0) Ur Specific [place] (1.005-1.030) Urine Protein (Negative) Urine Glucose (UA) (Negative) Urine Ketones (Negative) Urine Occult Blood (Negative) Urine Nitrite (Negative) Urine Bilirubin (Negative) Urine Urobilinogen (0.2-1.0) Ur Leukocyte Esterase (Negative) Urine RBC (0-5) /hpf Urine WBC (0-5) /hpf Ur Squamous Epith Cells (0-5) /hpf Urine Bacteria (FEW) /hpf Urine Mucus (FEW) /hpf SARS-CoV-2 RNA (JAGDEEP) (NEGATIVE) Meds: Medications Generic Name Dose Route Start Last Admin Trade Name Freq PRN Reason Stop Dose Admin Sodium Chloride 1,000 mls @ 125 mls/hr 09/24/20 16:45 09/24/20 17:20 Normal Saline IV 125 mls/hr ASDIRECTED SAMI Administration Sodium Chloride 10 ml 09/24/20 16:43 09/24/20 17:37 Saline Flush FLUSH 10 ml ASDIRECTED PRN Administration Keep Vein Open Discontinued Medications Generic Name Dose Route Start Last Admin Trade Name Freq PRN Reason Stop Dose Admin Ceftriaxone Sodium 2 gm/ 100 mls @ 200 mls/hr 09/24/20 16:45 09/24/20 17:20 Sodium Chloride IV 09/24/20 17:14 200 mls/hr ONETIME ONE Administration - Re-Assessments/Exams Free Text/Narrative Re-Assessment/Exam: 09/24/20 17:50 I ordered an IV saline lock, CT of his head, CXR, EKG, labs, UA, lactic acid blood cultures, rocephin 2 grams IV and oxygen PRN. 09/24/20 17:51 His EKG shows a NSR with no acute changes. His CXR shows nothing acute. His CT shows senescent change as noted above. Nothing acute is appreciated. Slight chronic appearing mucosal thickening. His CBC looks good. His PT and PTT were normal. His glucose is elevated at 133. His lactic acid is normal. His troponin is negative. His CRP is normal. His UA shows no UTI. His COVID 19 is negative. 09/24/20 18:38 He will try to open his eyes and saw a few words when I talk to him but he cannot go home like this. I feel he needs to be admitted for failure to thrive and confusion. I called Dr Roblero and he agreed to the admission. Departure - Departure Time of Disposition: 18:40 Disposition: Admitted As Inpatient 65 Condition: Fair Clinical Impression: Confusion Failure to thrive Qualifiers: Failure to thrive age range: in adult Qualified Code(s): R62.7 - Adult failure to thrive - Discharge Information Referrals: PCP,None [Primary Care Provider] - Forms: ED Department Discharge Sepsis Event Note (ED) - Evaluation Sepsis Screening Result: No Definite Risk - Focused Exam Vital Signs: Vital Signs Temp Pulse Resp BP Pulse Ox 09/24/20 18:15 85 164/120 H 100 09/24/20 16:40 96.3 F L 73 16 181/94 H 100 - My Orders Last 24 Hours: My Active Orders 09/24/20 16:43 Cardiac Monitoring [RC] . DIRECTED Oxygen Therapy [RC] PRN Sodium Chloride 0.9% [Saline Flush] 10 ml FLUSH ASDIRECTED PRN Peripheral IV Insertion Adult [OM.PC] Stat 09/24/20 16:44 EKG Documentation Completion [RC] STAT Peripheral IV Care [RC] . DIRECTED 09/24/20 16:45 Sodium Chloride 0.9% [Normal Saline] 1,000 ml IV ASDIRECTED Blood Culture x2 Reflex Set [OM.PC] Stat 09/24/20 16:50 Insert Urinary Catheter [OM.PC] Stat 09/24/20 17:08 CULTURE BLOOD [BC] Stat 09/24/20 17:14 CULTURE BLOOD [BC] Stat 09/24/20 17:52 Urinary Catheter Assessment [RC] ASDIRECTED - Assessment/Plan Last 24 Hours: My Active Orders 09/24/20 16:43 Cardiac Monitoring [RC] . DIRECTED Oxygen Therapy [RC] PRN Sodium Chloride 0.9% [Saline Flush] 10 ml FLUSH ASDIRECTED PRN Peripheral IV Insertion Adult [OM.PC] Stat 09/24/20 16:44 EKG Documentation Completion [RC] STAT Peripheral IV Care [RC] . DIRECTED 09/24/20 16:45 Sodium Chloride 0.9% [Normal Saline] 1,000 ml IV ASDIRECTED Blood Culture x2 Reflex Set [OM.PC] Stat 09/24/20 16:50 Insert Urinary Catheter [OM.PC] Stat 09/24/20 17:08 CULTURE BLOOD [BC] Stat 09/24/20 17:14 CULTURE BLOOD [BC] Stat 09/24/20 17:52 Urinary Catheter Assessment [RC] ASDIRECTED
--- NOTE | 2020-09-24 18:00 | CT ---
Head CT Technique: Multiple axial sections through the brain were obtained. Intravenous contrast was not utilized. Comparison: Prior head CT study of 08/30/10 Finding:s Ventricle along with basal cisterns and sulci over the convexities are mildly prominent. Diminished density is noted within the periventricular white matter most likely due to stable small vessel ischemic demyelination change. Slight basal ganglia calcification is noted. Small low-density area is noted within the subcortical white matter within the right parietal region which is stable. No other abnormal parenchymal densities are seen. No evidence of intracranial hemorrhage. No midline shift or mass-effect is seen. Bone window settings were reviewed which show no acute mastoid sinus findings. Paranasal sinuses show slight mucosal thickening within the frontal and anterior ethmoid sinuses. No air-fluid levels are seen. Impression: 1. Senescent change as noted above. 2. Nothing acute is appreciated. 3. Slight chronic appearing mucosal thickening as noted above. Diagnostic code #2
--- NOTE | 2020-09-24 18:00 | CR ---
Chest: Portable view of the chest was obtained. Comparison: Prior chest x-ray of 08/18/20. Heart size appears slightly enlarged but likely accentuated from portable technique. No definite acute parenchymal change is seen. Bony structures are grossly intact. Impression: 1. Nothing acute is appreciated on portable chest x-ray. Diagnostic code #2
--- NOTE | 2020-09-24 20:30 | PCM.HP.2 ---
H&P History of Present Illness - General Date of Service: 09/24/20 Admit Problem/Dx: Admission Diagnosis/Problem Admission Diagnosis/Problem Failure to thrive - History of Present Illness Initial Comments - Free Text/Narative: 85-year-old male with history of CVA was brought in by the [facility] ambulance with increasing confusion over the last 2 days. Apparently patient has becoming increasingly confused having more difficulties at home for 1 year. His states that over the last few days it has worsened and today he was able to walk or get around and so she called EMS. When the ambulance arrived they tried to help him get out of the house and he became combative. EMS did give him some Ativan and the patient has been asleep since he arrived in the emergency department. His denies any fever, chills, diarrhea, abdominal pain. She states he seems to hurt all over, but this is not worse. He has had no significant change in any other medical problems. CT of the head was done in the emergency department which showed no acute findings. Chest x-ray was negative also for acute findings. Apparently he was diagnosed with a UTI a couple weeks ago and was placed on antibiotic. UA here was negative for leukocytes or WBCs. There was a small amount of RBCs. Lab work was noncontributory. Blood pressure has been elevated since arrival. - Related Data Allergies/Adverse Reactions: Allergies Allergy/AdvReac Type Severity Reaction Status Date / Time No Known Allergies Allergy Verified 09/24/20 20:28 Home Medications: Home Meds Clopidogrel [Plavix] 75 mg PO DAILY 09/23/19 [History] Docusate Sodium [Colace] 100 cap PO BID 09/23/19 [History] Famotidine [Acid Controller] 20 mg PO DAILY 09/23/19 [History] Loratadine [Claritin] 20 mg PO DAILY 09/23/19 [History] Metoprolol Succinate [Toprol Xl] 100 mg PO DAILY 09/23/19 [History] Potassium Chloride 10 meq PO DAILY 09/23/19 [History] Cholecalciferol (Vitamin D3) [Vitamin D3] 10 mcg PO DAILY 09/24/20 [History] Docusate Sodium 250 mg PO BID 09/24/20 [History] Past Medical History HEENT History: Reports: Allergic Rhinitis, Impaired Vision Other HEENT History: wear glasses Cardiovascular History: Reports: Afib, Hypertension Respiratory History: Reports: Asthma Genitourinary History: Reports: UTI, Recurrent Musculoskeletal History: Reports: Back Pain, Chronic Neurological History: Reports: CVA, Other (See Below) Other Neuro History: dementia. RT sided stroke in 2010 per Psychiatric History: Reports: Dementia - Past Surgical History HEENT Surgical History: Reports: Adenoidectomy, Cataract Surgery, Tonsillectomy GI Surgical History: Reports: Hernia, Inguinal Social & Family History - Tobacco Use Tobacco Use Status *Q: Current Status Unknown - Caffeine Use Caffeine Use: Reports: Coffee, Tea Caffeine Use Comment: Unknown. - Living Situation & Occupation Living situation: Reports: , with Spouse Occupation: Retired H&P Review of Systems - Review of Systems: Review Of Systems: Unable To Obtain Reason Not Obtained: Asleep and difficult to arouse Exam - Exam Exam: See Below - Vital Signs Vital Signs: Last Vital Signs Temp 96.3 F L 09/24/20 16:40 Pulse 87 09/24/20 18:45 Resp 16 09/24/20 16:40 BP 151/99 H 09/24/20 18:45 Pulse Ox 100 09/24/20 18:45 Weight: 179 lb - Exam Quality Assessment: No: Supplemental Oxygen General: Lethargic HEENT: Mucosa Moist & [place] Neck: Supple, Trachea Midline, 2 Cardiovascular: Regular Rate, Regular Rhythm GI/Abdominal Exam: Normal Bowel Sounds, Soft, No Organomegaly, No Distention, No Abnormal Bruit, No Mass, Tender (Left lower and right upper quadrant tenderness without guarding or rebound.) Extremities: Normal Inspection, Normal Range of Motion, Non-Tender, No Pedal Edema, Normal Capillary Refill, Other (Excoriations on his shins consistent with scratching) Peripheral Pulses: 1+: Posterior Tibial (L), Posterior Tibial (R), Dorsalis Pedis (L), Dorsalis Pedis (R) Skin: Warm, Dry, Intact Neuro Extensive - Mental Status: Withdraws to Pain - Patient Data Lab Results Last 24 hrs: Laboratory Results - last 24 hr 09/24/20 09/24/20 09/24/20 Range/Units 16:50 16:52 17:08 WBC 7.61 (4.23-9.07) K/mm3 RBC 4.30 L (4.63-6.08) M/mm3 Hgb 12.1 L (13.7-17.5) gm/dl Hct 36.9 L (40.1-51.0) % MCV 85.8 (79.0-92.2) fl MCH 28.1 (25.7-32.2) pg MCHC 32.8 (32.2-35.5) g/dl RDW Std Deviation 42.6 (35.1-43.9) fL Plt Count 220 (163-337) K/mm3 MPV 11.0 (9.4-12.3) fl Neut % (Auto) 78.7 H (34.0-67.9) % Lymph % (Auto) 12.6 L (21.8-53.1) % [place] % (Auto) 7.8 (5.3-12.2) % Eos % (Auto) 0.5 L (0.8-7.0) Baso % (Auto) 0.1 (0.1-1.2) % Neut # (Auto) 5.99 H (1.78-5.38) K/mm3 Lymph # (Auto) 0.96 L (1.32-3.57) K/mm3 [place] # (Auto) 0.59 (0.30-0.82) K/mm3 Eos # (Auto) 0.04 (0.04-0.54) K/mm3 Baso # (Auto) 0.01 (0.01-0.08) K/mm3 PT (9.7-12.0) SECONDS INR APTT (21.7-31.4) SECONDS Sodium (136-145) mEq/L Potassium (3.5-5.1) mEq/L Chloride (98-107) mEq/L Carbon Dioxide (21-32) mEq/L Anion Gap (5-15) BUN (7-18) mg/dL Creatinine (0.7-1.3) mg/dL Est Cr Clr Drug Dosing mL/min Estimated GFR (MDRD) (>60) mL/min BUN/Creatinine Ratio (14-18) Glucose (83-115) mg/dL Lactic Acid (0.4-2.0) mmol/L Calcium (8.5-10.1) mg/dL Magnesium (1.8-2.4) mg/dl Total Bilirubin (0.2-1.0) mg/dL AST (15-37) U/L ALT (16-63) U/L Alkaline Phosphatase (46-116) U/L Troponin I (0.00-0.056) ng/mL C-Reactive Protein (<1.0) mg/dL Total Protein (6.4-8.2) g/dl Albumin (3.4-5.0) g/dl Globulin gm/dL Albumin/Globulin Ratio (1-2) Urine Color Yellow (Yellow) Urine Appearance Clear (Clear) Urine pH 7.0 (5.0-8.0) Ur Specific Industry 1.020 (1.005-1.030) Urine Protein Negative (Negative) Urine Glucose (UA) Negative (Negative) Urine Ketones Negative (Negative) Urine Occult Blood 1+ H (Negative) Urine Nitrite Negative (Negative) Urine Bilirubin Negative (Negative) Urine Urobilinogen 0.2 (0.2-1.0) Ur Leukocyte Esterase Negative (Negative) Urine RBC 5-10 H (0-5) /hpf Urine WBC 0-5 (0-5) /hpf Ur Squamous Epith Cells 0-5 (0-5) /hpf Urine Bacteria Few (FEW) /hpf Urine Mucus Few (FEW) /hpf SARS-CoV-2 RNA (JAGDEEP) Negative (NEGATIVE) 09/24/20 09/24/20 09/24/20 Range/Units 17:08 17:08 17:08 WBC (4.23-9.07) K/mm3 RBC (4.63-6.08) M/mm3 Hgb (13.7-17.5) gm/dl Hct (40.1-51.0) % MCV (79.0-92.2) fl MCH (25.7-32.2) pg MCHC (32.2-35.5) g/dl RDW Std Deviation (35.1-43.9) fL Plt Count (163-337) K/mm3 MPV (9.4-12.3) fl Neut % (Auto) (34.0-67.9) % Lymph % (Auto) (21.8-53.1) % [place] % (Auto) (5.3-12.2) % Eos % (Auto) (0.8-7.0) Baso % (Auto) (0.1-1.2) % Neut # (Auto) (1.78-5.38) K/mm3 Lymph # (Auto) (1.32-3.57) K/mm3 [place] # (Auto) (0.30-0.82) K/mm3 Eos # (Auto) (0.04-0.54) K/mm3 Baso # (Auto) (0.01-0.08) K/mm3 PT 11.4 (9.7-12.0) SECONDS INR 1.07 APTT 27.2 (21.7-31.4) SECONDS Sodium 138 (136-145) mEq/L Potassium 3.9 (3.5-5.1) mEq/L Chloride 99 (98-107) mEq/L Carbon Dioxide 26 (21-32) mEq/L Anion Gap 16.9 H (5-15) BUN 13 (7-18) mg/dL Creatinine 1.0 (0.7-1.3) mg/dL Est Cr Clr Drug Dosing 49.58 mL/min Estimated GFR (MDRD) > 60 (>60) mL/min BUN/Creatinine Ratio 13.0 L (14-18) Glucose 133 H (83-115) mg/dL Lactic Acid 1.3 (0.4-2.0) mmol/L Calcium 8.9 (8.5-10.1) mg/dL Magnesium 1.9 (1.8-2.4) mg/dl Total Bilirubin 0.6 (0.2-1.0) mg/dL AST 12 L (15-37) U/L ALT 10 L (16-63) U/L Alkaline Phosphatase 70 (46-116) U/L Troponin I < 0.017 (0.00-0.056) ng/mL C-Reactive Protein 0.7 (<1.0) mg/dL Total Protein 7.6 (6.4-8.2) g/dl Albumin 3.7 (3.4-5.0) g/dl Globulin 3.9 gm/dL Albumin/Globulin Ratio 1.0 (1-2) Urine Color (Yellow) Urine Appearance (Clear) Urine pH (5.0-8.0) Ur Specific Industry (1.005-1.030) Urine Protein (Negative) Urine Glucose (UA) (Negative) Urine Ketones (Negative) Urine Occult Blood (Negative) Urine Nitrite (Negative) Urine Bilirubin (Negative) Urine Urobilinogen (0.2-1.0) Ur Leukocyte Esterase (Negative) Urine RBC (0-5) /hpf Urine WBC (0-5) /hpf Ur Squamous Epith Cells (0-5) /hpf Urine Bacteria (FEW) /hpf Urine Mucus (FEW) /hpf SARS-CoV-2 RNA (JAGDEEP) (NEGATIVE) Result Diagrams: 09/24/20 17:08 09/24/20 17:08 #1 Interpretation EKG Date: 09/24/20 Rhythm: NSR Rate (Beats/Min): 78 [place]: Normal P-Wave: Present QRS: Normal ST-T: Normal QT: Normal Sepsis Event Note - Evaluation Sepsis Screening Result: No Definite Risk - Focused Exam Vital Signs: Vital Signs Temp Pulse Resp BP Pulse Ox 09/24/20 18:45 87 151/99 H 100 09/24/20 18:15 85 164/120 H 100 09/24/20 16:40 96.3 F L 73 16 181/94 H 100 - Problem List (1) Hypertension SNOMED Code(s): 54717502 ICD Code: I10 - ESSENTIAL (PRIMARY) HYPERTENSION Status: Acute Current Visit: Yes (2) Confusion SNOMED Code(s): 836811003 ICD Code: R41.0 - DISORIENTATION, UNSPECIFIED Status: Acute Current Visit: Yes (3) Failure to thrive SNOMED Code(s): 58105411 ICD Code: YPW0087 - Status: Acute Current Visit: Yes Qualifiers: Failure to thrive age range: in adult Qualified Code(s): R62.7 - Adult failure to thrive (4) Dementia SNOMED Code(s): 90261436 ICD Code: F03.90 - UNSPECIFIED DEMENTIA WITHOUT BEHAVIORAL DISTURBANCE Status: Acute Current Visit: No Qualifiers: Dementia type: Alzheimer's disease Alzheimer's disease onset: late-onset Dementia behavioral disturbance: without behavioral disturbance Problem List Initiated/Reviewed/Updated: Yes Orders Last 24hrs: Active Orders 24 hr Category Date Time Status Admission Status [Patient Status] [ADT] Routine ADT 09/24/20 19:02 Active Cardiac Monitoring [RC] . DIRECTED Care 09/24/20 16:43 Active EKG Documentation Completion [RC] STAT Care 09/24/20 16:44 Active Insert Urinary Catheter [OM.PC] Stat Care 09/24/20 16:50 Ordered Oxygen Therapy [RC] PRN Care 09/24/20 16:43 Active Peripheral IV Care [RC] . DIRECTED Care 09/24/20 16:44 Active Urinary Catheter Assessment [RC] ASDIRECTED Care 09/24/20 17:52 Active CULTURE BLOOD [BC] Stat Lab 09/24/20 17:08 Received CULTURE BLOOD [BC] Stat Lab 09/24/20 17:14 Received Sodium Chloride 0.9% [Normal Saline] 1,000 ml Med 09/24/20 16:45 Active IV ASDIRECTED Sodium Chloride 0.9% [Saline Flush] Med 09/24/20 16:43 Active 10 ml FLUSH ASDIRECTED PRN Blood Culture x2 Reflex Set [OM.PC] Stat Oth 09/24/20 16:45 Ordered Peripheral IV Insertion Adult [OM.PC] Stat Oth 09/24/20 16:43 Ordered Code Status [Resuscitation Status] Stat Resus Stat 09/24/20 18:37 Ordered Medication Orders Sodium Chloride (Normal Saline) 1,000 mls @ 125 mls/hr IV ASDIRECTED SAMI Last Admin: 09/24/20 17:20 Dose: 125 mls/hr Documented by: TIKI Sodium Chloride (Saline Flush) 10 ml FLUSH ASDIRECTED PRN PRN Reason: Keep Vein Open Last Admin: 09/24/20 17:37 Dose: 10 ml Documented by: TIKI Assessment/Plan Comment:: Assessment 85-year-old male with history of CVA and likely dementia has worsening of confusion over the last year that has severely worsened over the last few days. Patient is now unable to walk or dress himself. He became combative when EMS arrived and he was given Ativan causing sedation. Dementia with worsening confusion Failure to thrive at home * History of CVA * Worsening confusion over the last year * Negative CT scan of the head in the ED * No obvious metabolic or infectious causes * is unable to care for him at home * Will likely need placement Hypertension * Unknown last dose of blood pressure medication * Home medications include metoprolol. * states he was seen in the ED on 08/18/2020 and they stopped his hydrochlorothiazide and amlodipine * Blood pressures running in the 160s and 180 systolic in the ER Anemia, normochromic normocytic * Likely anemia of chronic disease Recent UTI * UA negative for infection today Plan * Admit to medical floor * Consult social and political studies professor * Restart home medications * Hydralazine for breakthrough hypertension * Repeat lab work in the morning * MRI of the brain without contrast tomorrow if patient can tolerate it * VTE prophylaxis with Lovenox * CODE STATUS, DNR/DNI - Mortality Measure Prognosis:: Good
[2020-09-24] MEDS ORDERED: hydrALAZINE 20 MG/ML SDV IVPUSH PRN (20:48)
[2020-09-24] MEDS ORDERED: Acetaminophen 325 MG Tab PO PRN (20:49)
[2020-09-24] MEDS ORDERED: Ondansetron 4 MG/2 ML SDV IV PRN (20:49)
[2020-09-24] MEDS: Docusate Sodium 100 MG Cap PO SCH (22:17)
--- NOTE | 2020-09-25 08:38 | PCM.PN ---
- General Info Date of Service: 09/25/20 Admission Dx/Problem (Free Text): Admission Diagnosis/Problem Admission Diagnosis/Problem Failure to thrive Subjective Update: In to see Arian. He is sitting up in bed eating breakfast. He remains very confused, not making much sense with our communication and asking where he is. He has no current complaints. Continue current plan for placement. - Review of Systems Systems Review Comment:: Unable to obtain ROS as patient remains quite confused, often asking where he is. He denies any pain and has had no obvious signs of pain. He is currently sitting up in bed eating. - Patient Data Vitals - Most Recent: Last Vital Signs Temp 97.9 F 09/24/20 20:49 Pulse 83 09/24/20 20:50 Resp 16 09/24/20 20:50 BP 118/89 09/24/20 22:09 Pulse Ox 95 09/24/20 20:50 Weight - Most Recent: 173 lb 12.8 oz I&O - Last 24 Hours: Intake & Output 09/24/20 09/25/20 09/25/20 22:59 06:59 14:59 Intake Total 650 Output Total 1000 650 Balance -1000 0 Lab Results Last 24 Hours: Laboratory Results - last 24 hr 09/24/20 09/24/20 09/24/20 Range/Units 16:50 16:52 17:08 WBC 7.61 (4.23-9.07) K/mm3 RBC 4.30 L (4.63-6.08) M/mm3 Hgb 12.1 L (13.7-17.5) gm/dl Hct 36.9 L (40.1-51.0) % MCV 85.8 (79.0-92.2) fl MCH 28.1 (25.7-32.2) pg MCHC 32.8 (32.2-35.5) g/dl RDW Std Deviation 42.6 (35.1-43.9) fL Plt Count 220 (163-337) K/mm3 MPV 11.0 (9.4-12.3) fl Neut % (Auto) 78.7 H (34.0-67.9) % Lymph % (Auto) 12.6 L (21.8-53.1) % [place] % (Auto) 7.8 (5.3-12.2) % Eos % (Auto) 0.5 L (0.8-7.0) Baso % (Auto) 0.1 (0.1-1.2) % Neut # (Auto) 5.99 H (1.78-5.38) K/mm3 Lymph # (Auto) 0.96 L (1.32-3.57) K/mm3 [place] # (Auto) 0.59 (0.30-0.82) K/mm3 Eos # (Auto) 0.04 (0.04-0.54) K/mm3 Baso # (Auto) 0.01 (0.01-0.08) K/mm3 PT (9.7-12.0) SECONDS INR APTT (21.7-31.4) SECONDS Sodium (136-145) mEq/L Potassium (3.5-5.1) mEq/L Chloride (98-107) mEq/L Carbon Dioxide (21-32) mEq/L Anion Gap (5-15) BUN (7-18) mg/dL Creatinine (0.7-1.3) mg/dL Est Cr Clr Drug Dosing mL/min Estimated GFR (MDRD) (>60) mL/min BUN/Creatinine Ratio (14-18) Glucose (83-115) mg/dL Lactic Acid (0.4-2.0) mmol/L Calcium (8.5-10.1) mg/dL Phosphorus (2.6-4.7) mg/dL Magnesium (1.8-2.4) mg/dl Total Bilirubin (0.2-1.0) mg/dL AST (15-37) U/L ALT (16-63) U/L Alkaline Phosphatase (46-116) U/L Troponin I (0.00-0.056) ng/mL C-Reactive Protein (<1.0) mg/dL Total Protein (6.4-8.2) g/dl Albumin (3.4-5.0) g/dl Globulin gm/dL Albumin/Globulin Ratio (1-2) Urine Color Yellow (Yellow) Urine Appearance Clear (Clear) Urine pH 7.0 (5.0-8.0) Ur Specific [place] 1.020 (1.005-1.030) Urine Protein Negative (Negative) Urine Glucose (UA) Negative (Negative) Urine Ketones Negative (Negative) Urine Occult Blood 1+ H (Negative) Urine Nitrite Negative (Negative) Urine Bilirubin Negative (Negative) Urine Urobilinogen 0.2 (0.2-1.0) Ur Leukocyte Esterase Negative (Negative) Urine RBC 5-10 H (0-5) /hpf Urine WBC 0-5 (0-5) /hpf Ur Squamous Epith Cells 0-5 (0-5) /hpf Urine Bacteria Few (FEW) /hpf Urine Mucus Few (FEW) /hpf SARS-CoV-2 RNA (JAGDEEP) Negative (NEGATIVE) 09/24/20 09/24/20 09/24/20 Range/Units 17:08 17:08 17:08 WBC (4.23-9.07) K/mm3 RBC (4.63-6.08) M/mm3 Hgb (13.7-17.5) gm/dl Hct (40.1-51.0) % MCV (79.0-92.2) fl MCH (25.7-32.2) pg MCHC (32.2-35.5) g/dl RDW Std Deviation (35.1-43.9) fL Plt Count (163-337) K/mm3 MPV (9.4-12.3) fl Neut % (Auto) (34.0-67.9) % Lymph % (Auto) (21.8-53.1) % [place] % (Auto) (5.3-12.2) % Eos % (Auto) (0.8-7.0) Baso % (Auto) (0.1-1.2) % Neut # (Auto) (1.78-5.38) K/mm3 Lymph # (Auto) (1.32-3.57) K/mm3 [place] # (Auto) (0.30-0.82) K/mm3 Eos # (Auto) (0.04-0.54) K/mm3 Baso # (Auto) (0.01-0.08) K/mm3 PT 11.4 (9.7-12.0) SECONDS INR 1.07 APTT 27.2 (21.7-31.4) SECONDS Sodium 138 (136-145) mEq/L Potassium 3.9 (3.5-5.1) mEq/L Chloride 99 (98-107) mEq/L Carbon Dioxide 26 (21-32) mEq/L Anion Gap 16.9 H (5-15) BUN 13 (7-18) mg/dL Creatinine 1.0 (0.7-1.3) mg/dL Est Cr Clr Drug Dosing 49.58 mL/min Estimated GFR (MDRD) > 60 (>60) mL/min BUN/Creatinine Ratio 13.0 L (14-18) Glucose 133 H (83-115) mg/dL Lactic Acid 1.3 (0.4-2.0) mmol/L Calcium 8.9 (8.5-10.1) mg/dL Phosphorus (2.6-4.7) mg/dL Magnesium 1.9 (1.8-2.4) mg/dl Total Bilirubin 0.6 (0.2-1.0) mg/dL AST 12 L (15-37) U/L ALT 10 L (16-63) U/L Alkaline Phosphatase 70 (46-116) U/L Troponin I < 0.017 (0.00-0.056) ng/mL C-Reactive Protein 0.7 (<1.0) mg/dL Total Protein 7.6 (6.4-8.2) g/dl Albumin 3.7 (3.4-5.0) g/dl Globulin 3.9 gm/dL Albumin/Globulin Ratio 1.0 (1-2) Urine Color (Yellow) Urine Appearance (Clear) Urine pH (5.0-8.0) Ur Specific [place] (1.005-1.030) Urine Protein (Negative) Urine Glucose (UA) (Negative) Urine Ketones (Negative) Urine Occult Blood (Negative) Urine Nitrite (Negative) Urine Bilirubin (Negative) Urine Urobilinogen (0.2-1.0) Ur Leukocyte Esterase (Negative) Urine RBC (0-5) /hpf Urine WBC (0-5) /hpf Ur Squamous Epith Cells (0-5) /hpf Urine Bacteria (FEW) /hpf Urine Mucus (FEW) /hpf SARS-CoV-2 RNA (JAGDEEP) (NEGATIVE) 09/25/20 09/25/20 Range/Units 06:20 06:20 WBC 5.20 (4.23-9.07) K/mm3 RBC 3.78 L (4.63-6.08) M/mm3 Hgb 10.6 L D (13.7-17.5) gm/dl Hct 32.7 L (40.1-51.0) % MCV 86.5 (79.0-92.2) fl MCH 28.0 (25.7-32.2) pg MCHC 32.4 (32.2-35.5) g/dl RDW Std Deviation 42.5 (35.1-43.9) fL Plt Count 187 (163-337) K/mm3 MPV 11.0 (9.4-12.3) fl Neut % (Auto) 47.4 (34.0-67.9) % Lymph % (Auto) 36.2 (21.8-53.1) % [place] % (Auto) 12.9 H (5.3-12.2) % Eos % (Auto) 3.1 (0.8-7.0) Baso % (Auto) 0.4 (0.1-1.2) % Neut # (Auto) 2.47 (1.78-5.38) K/mm3 Lymph # (Auto) 1.88 (1.32-3.57) K/mm3 [place] # (Auto) 0.67 (0.30-0.82) K/mm3 Eos # (Auto) 0.16 (0.04-0.54) K/mm3 Baso # (Auto) 0.02 (0.01-0.08) K/mm3 PT (9.7-12.0) SECONDS INR APTT (21.7-31.4) SECONDS Sodium 139 (136-145) mEq/L Potassium 3.6 (3.5-5.1) mEq/L Chloride 104 (98-107) mEq/L Carbon Dioxide 25 (21-32) mEq/L Anion Gap 13.6 (5-15) BUN 11 (7-18) mg/dL Creatinine 0.9 (0.7-1.3) mg/dL Est Cr Clr Drug Dosing 55.08 mL/min Estimated GFR (MDRD) > 60 (>60) mL/min BUN/Creatinine Ratio 12.2 L (14-18) Glucose 98 (83-115) mg/dL Lactic Acid (0.4-2.0) mmol/L Calcium 8.7 (8.5-10.1) mg/dL Phosphorus 3.7 (2.6-4.7) mg/dL Magnesium 1.9 (1.8-2.4) mg/dl Total Bilirubin 0.5 (0.2-1.0) mg/dL AST 12 L (15-37) U/L ALT 10 L (16-63) U/L Alkaline Phosphatase 58 (46-116) U/L Troponin I (0.00-0.056) ng/mL C-Reactive Protein 0.7 (<1.0) mg/dL Total Protein 6.3 L (6.4-8.2) g/dl Albumin 2.9 L (3.4-5.0) g/dl Globulin 3.4 gm/dL Albumin/Globulin Ratio 0.9 L (1-2) Urine Color (Yellow) Urine Appearance (Clear) Urine pH (5.0-8.0) Ur Specific [place] (1.005-1.030) Urine Protein (Negative) Urine Glucose (UA) (Negative) Urine Ketones (Negative) Urine Occult Blood (Negative) Urine Nitrite (Negative) Urine Bilirubin (Negative) Urine Urobilinogen (0.2-1.0) Ur Leukocyte Esterase (Negative) Urine RBC (0-5) /hpf Urine WBC (0-5) /hpf Ur Squamous Epith Cells (0-5) /hpf Urine Bacteria (FEW) /hpf Urine Mucus (FEW) /hpf SARS-CoV-2 RNA (JAGDEEP) (NEGATIVE) Med Orders - Current: Current Medications Acetaminophen (Tylenol) 650 mg PO Q4H PRN PRN Reason: Pain (Mild 1-3)/fever Clopidogrel Bisulfate (Plavix) 75 mg PO DAILY [facility] Docusate Sodium (Colace) 100 mg PO BID [facility] Last Admin: 09/24/20 22:17 Dose: Not Given Documented by: Enoxaparin Sodium (Lovenox) 40 mg SUBCUT DAILY [facility] Famotidine (Pepcid) 20 mg PO DAILY [facility] Hydralazine HCl (Apresoline) 10 mg IVPUSH Q2H PRN PRN Reason: Hypertension Sodium Chloride (Normal Saline) 1,000 mls @ 125 mls/hr IV ASDIRECTED [facility] Last Admin: 09/24/20 17:20 Dose: 125 mls/hr Documented by: Magnesium Hydroxide (Milk Of Magnesia) 30 ml PO ONETIME ONE Stop: 09/25/20 09:01 Metoprolol Succinate (Toprol Xl) 100 mg PO DAILY [facility] Ondansetron HCl (Zofran) 4 mg IV Q4H PRN PRN Reason: Nausea/Vomiting Sodium Chloride (Saline Flush) 10 ml FLUSH ASDIRECTED PRN PRN Reason: Keep Vein Open Last Admin: 09/24/20 17:37 Dose: 10 ml Documented by: Discontinued Medications Ceftriaxone Sodium 2 gm/ (Sodium Chloride) 100 mls @ 200 mls/hr IV ONETIME ONE Stop: 09/24/20 17:14 Last Admin: 09/24/20 17:20 Dose: 200 mls/hr Documented by: - Exam Quality Assessment: DVT Prophylaxis. No: Supplemental Oxygen General: Alert, Cooperative, No Acute Distress. No: Oriented HEENT: Pupils Equal, Pupils Reactive, Mucous Membr. Moist/[place] Neck: Supple, Trachea Midline Lungs: Clear to Auscultation, Normal Respiratory Effort Cardiovascular: Regular Rate, Regular Rhythm GI/Abdominal Exam: Normal Bowel Sounds, Soft, Non-Tender, No Distention (Male) Exam: Deferred Back Exam: Normal Inspection, Full Range of Motion Extremities: Normal Inspection, Normal Range of Motion, Non-Tender, No Pedal Edema, Normal Capillary Refill Skin: Warm, Dry, Intact Neurological: No New Focal Deficit Psy/Mental Status: Alert Sepsis Event Note - Evaluation Sepsis Screening Result: No Definite Risk - Focused Exam Vital Signs: Vital Signs Temp Pulse Resp BP Pulse Ox 09/24/20 22:09 118/89 09/24/20 20:50 83 16 173/154 H 95 09/24/20 20:49 97.9 F - Problem List & Annotations (1) Confusion SNOMED Code(s): 969941665 Code(s): R41.0 - DISORIENTATION, UNSPECIFIED Status: Acute Priority: High Current Visit: Yes (2) Failure to thrive SNOMED Code(s): 42324834 Code(s): ZDZ8847 - Status: Acute Priority: High Current Visit: Yes Qualifiers: Failure to thrive age range: in adult Qualified Code(s): R62.7 - Adult failure to thrive (3) Hypertension SNOMED Code(s): 44444800 Code(s): I10 - ESSENTIAL (PRIMARY) HYPERTENSION Status: Chronic Priority: Medium Current Visit: Yes Qualifiers: Hypertension type: unspecified Qualified Code(s): I10 - Essential (primary) hypertension (4) Dementia SNOMED Code(s): 11856711 Code(s): F03.90 - UNSPECIFIED DEMENTIA WITHOUT BEHAVIORAL DISTURBANCE Status: Acute Priority: High Current Visit: Yes Qualifiers: Dementia type: Alzheimer's disease Alzheimer's disease onset: late-onset Dementia behavioral disturbance: without behavioral disturbance (5) Anemia SNOMED Code(s): 542588806 Code(s): D64.9 - ANEMIA, UNSPECIFIED Status: Acute Priority: Medium Current Visit: Yes Qualifiers: Anemia type: unspecified type Qualified Code(s): D64.9 - Anemia, unspecified - Problem List Review Problem List Initiated/Reviewed/Updated: Yes - Plan Plan:: Assessment 85-year-old male with history of CVA and likely dementia has worsening of confusion over the last year that has severely worsened over the last few days. Patient is now unable to walk or dress himself. He became combative when EMS arrived and he was given Ativan causing sedation. Dementia with worsening confusion Failure to thrive at home * History of CVA * Worsening confusion over the last year * Negative CT scan of the head in the ED * No obvious metabolic or infectious causes * is unable to care for him at home * Will likely need placement Hypertension * Unknown last dose of blood pressure medication * Home medications include metoprolol. * states he was seen in the ED on 08/18/2020 and they stopped his hydrochlorothiazide and amlodipine * Blood pressures running in the 160s and 180 systolic in the ER Anemia, normochromic normocytic * Likely anemia of chronic disease Recent UTI * UA negative for infection today Plan * Admit to medical floor * Consult social work msw * Restart home medications * Hydralazine for breakthrough hypertension * Repeat lab work in the morning * MRI of the brain without contrast tomorrow if patient can tolerate it * VTE prophylaxis with Lovenox * CODE STATUS, DNR/DNI 09/26/20 Patient remains quite confused, asking where he is. He remains quite pleasant. Currently denies any pain. Labs today were grossly unremarkable with no signs of active infection. Anemia has worsened all this is likely secondary to dilution from IV fluids. Hemoglobin is 10.6 today. MRI is ordered today. Have ordered PT/OT evaluation and social work/case management consult with plan of discharge to SNF. Pressure this morning is 118/89 which is greatly improved on his ED blood pressures. We will add aspiration precautions as patient is likely high risk. No signs of coughing while eating. We will continue to monitor. No need for lab work tomorrow and will consider repeat on . Nursing patient had straight catheterization performed in the ED and was noted to have some bleeding thereafter. Will monitor urine output and bladder scan/straight catheterize as needed. Should patient continue to retain urine he will have Saez catheter placed per protocol.
[2020-09-25] MEDS ORDERED: Magnesium Hydroxide 400 MG/5 ML Susp 30 ML Cup PO ONE (09:00)
[2020-09-25] MEDS: Enoxaparin 40 MG/0.4 ML Syringe SUBCUT SCH (10:27)
[2020-09-25] MEDS: Famotidine 20 MG Tab PO SCH (10:28)
[2020-09-25] MEDS: Metoprolol Succinate 50 MG Tab.ER PO SCH (10:28)
[2020-09-25] MEDS: Docusate Sodium 100 MG Cap PO SCH ×2 (10:29→20:12)
[2020-09-25] MEDS: Clopidogrel 75 MG Tab PO SCH (10:29)
--- NOTE | 2020-09-25 11:06 | MR ---
MRI brain Technique: T1 sagittal; T2, T2 FLAIR, T1 and diffusion axial; T2 gradient echo and T1 weighted coronal of the brain were obtained. Comparison: Prior head CT study of 09/24/20. Findings: Ventricles along with basal cisterns and sulci over the convexities are mildly prominent. Multiple areas of increased signal are seen within the subcortical and periventricular white matter which is most likely due to prominent small vessel ischemic demyelination change. No definite diffusion abnormalities are appreciated. No definite midline shift or mass-effect is seen. Mild mucosal thickening is seen within the ethmoid sinuses which appears to be chronic. Impression: 1. Prominent senescent change as noted above. 2. No acute diffusion abnormalities are appreciated. 3. Slight mucosal thickening within the ethmoid sinuses which is believed to be chronic. Diagnostic code #2
[2020-09-25] MEDS ORDERED: Magnesium Oxide 400 MG Tab PO ONE ×3 (11:30→20:00)
[2020-09-25] MEDS ORDERED: Potassium Chloride 20 MEQ Tab.ER PO ONE ×3 (11:30→20:00)
[2020-09-25] MEDS: Pantoprazole 40 MG Tab.CR PO SCH (20:12)
--- NOTE | 2020-09-26 07:33 | PCM.PN ---
- General Info Date of Service: 09/26/20 Admission Dx/Problem (Free Text): Admission Diagnosis/Problem Admission Diagnosis/Problem Failure to thrive Subjective Update: In to see Arian. He is up in the chair eating. His is at bedside. Per nursing he had a bit of a rough night and was up most the night trying to crawl to bed. He pulled out his IV yesterday and this would not be replaced. He remains clinically stable pending placement. PT is recommending SNF placement as well. - Review of Systems Systems Review Comment:: Patient remains quite confused. Unable to obtain reliable ROS. Patient denies any pain. and nursing state patient does not appear to be in any pain and there are no acute concerns. - Patient Data Vitals - Most Recent: Last Vital Signs Temp 98.1 F 09/25/20 23:45 Pulse 91 09/25/20 23:45 Resp 16 09/25/20 23:45 BP 174/82 H 09/25/20 23:45 Pulse Ox 95 09/25/20 23:45 Weight - Most Recent: 176 lb 6.4 oz I&O - Last 24 Hours: Intake & Output 09/25/20 09/26/20 09/26/20 22:59 06:59 14:59 Intake Total 360 100 Output Total 100 Balance 360 0 Rick Results Last 24 Hours: Microbiology 09/24/20 17:14 Aerobic Blood Culture - Preliminary Blood - Venous - Lab Draw NO GROWTH AFTER 1 DAY Anaerobic Blood Culture - Preliminary NO GROWTH AFTER 1 DAY 09/24/20 17:08 Aerobic Blood Culture - Preliminary Blood - Venous NO GROWTH AFTER 1 DAY Anaerobic Blood Culture - Preliminary NO GROWTH AFTER 1 DAY Med Orders - Current: Current Medications Acetaminophen (Tylenol) 650 mg PO Q4H PRN PRN Reason: Pain (Mild 1-3)/fever Clopidogrel Bisulfate (Plavix) 75 mg PO DAILY [facility] Last Admin: 09/25/20 10:29 Dose: 75 mg Documented by: Docusate Sodium (Colace) 100 mg PO BID [facility] Last Admin: 09/25/20 20:12 Dose: 100 mg Documented by: Enoxaparin Sodium (Lovenox) 40 mg SUBCUT DAILY [facility] Last Admin: 09/25/20 10:27 Dose: 40 mg Documented by: Famotidine (Pepcid) 20 mg PO DAILY [facility] Last Admin: 09/25/20 10:28 Dose: 20 mg Documented by: Hydralazine HCl (Apresoline) 10 mg IVPUSH Q2H PRN PRN Reason: Hypertension Metoprolol Succinate (Toprol Xl) 100 mg PO DAILY [facility] Last Admin: 09/25/20 10:28 Dose: 100 mg Documented by: Ondansetron HCl (Zofran) 4 mg IV Q4H PRN PRN Reason: Nausea/Vomiting Pantoprazole Sodium (Protonix) 40 mg PO BEDTIME [facility] Last Admin: 09/25/20 20:12 Dose: 40 mg Documented by: Potassium Chloride (Klor-Con M20) 40 meq PO BID [facility] Stop: 09/27/20 09:01 Sodium Chloride (Saline Flush) 10 ml FLUSH ASDIRECTED PRN PRN Reason: Keep Vein Open Last Admin: 09/24/20 17:37 Dose: 10 ml Documented by: Discontinued Medications Ceftriaxone Sodium 2 gm/ (Sodium Chloride) 100 mls @ 200 mls/hr IV ONETIME ONE Stop: 09/24/20 17:14 Last Admin: 09/24/20 17:20 Dose: 200 mls/hr Documented by: Sodium Chloride (Normal Saline) 1,000 mls @ 125 mls/hr IV ASDIRECTED [facility] Last Admin: 09/24/20 17:20 Dose: 125 mls/hr Documented by: Magnesium Hydroxide (Milk Of Magnesia) 30 ml PO ONETIME ONE Stop: 09/25/20 09:01 Last Admin: 09/25/20 10:27 Dose: 30 ml Documented by: Magnesium Oxide (Magnesium Oxide) 400 mg PO ONETIME ONE Stop: 09/25/20 11:31 Last Admin: 09/25/20 20:13 Dose: Not Given Documented by: Magnesium Oxide (Magnesium Oxide) 400 mg PO ONETIME ONE Stop: 09/25/20 17:46 Last Admin: 09/25/20 20:14 Dose: Not Given Documented by: Magnesium Oxide (Magnesium Oxide) 400 mg PO ONETIME ONE Stop: 09/25/20 20:01 Last Admin: 09/25/20 20:12 Dose: 400 mg Documented by: Potassium Chloride (Klor-Con M20) 40 meq PO ONETIME ONE Stop: 09/25/20 11:31 Last Admin: 09/25/20 20:13 Dose: Not Given Documented by: Potassium Chloride (Klor-Con M20) 40 meq PO ONETIME ONE Stop: 09/25/20 17:46 Last Admin: 09/25/20 20:13 Dose: Not Given Documented by: Potassium Chloride (Klor-Con M20) 40 meq PO ONETIME ONE Stop: 09/25/20 20:01 Last Admin: 09/25/20 20:13 Dose: 40 meq Documented by: - Exam Quality Assessment: DVT Prophylaxis General: Alert, Cooperative (Mostly), No Acute Distress. No: Oriented HEENT: Pupils Equal, Pupils Reactive, Mucous Membr. Moist/[place] Neck: Supple, Trachea Midline Lungs: Clear to Auscultation, Normal Respiratory Effort Cardiovascular: Regular Rate, Regular Rhythm GI/Abdominal Exam: Normal Bowel Sounds, Soft, Non-Tender, No Distention (Male) Exam: Deferred Back Exam: Normal Inspection, Full Range of Motion Extremities: Normal Inspection, Normal Range of Motion, Non-Tender, No Pedal Edema, Normal Capillary Refill Neurological: No New Focal Deficit Psy/Mental Status: Alert Sepsis Event Note - Evaluation Sepsis Screening Result: No Definite Risk - Focused Exam Vital Signs: Vital Signs Temp Pulse Resp BP Pulse Ox 09/25/20 23:45 98.1 F 91 16 174/82 H 95 09/25/20 21:25 156/90 H 09/25/20 20:10 98.4 F 88 22 H 159/107 H 93 L - Problem List & Annotations (1) Confusion SNOMED Code(s): 796517875 Code(s): R41.0 - DISORIENTATION, UNSPECIFIED Status: Acute Priority: High Current Visit: Yes (2) Failure to thrive SNOMED Code(s): 01985606 Code(s): OEI0855 - Status: Acute Priority: High Current Visit: Yes Qualifiers: Failure to thrive age range: in adult Qualified Code(s): R62.7 - Adult failure to thrive (3) Hypertension SNOMED Code(s): 05052266 Code(s): I10 - ESSENTIAL (PRIMARY) HYPERTENSION Status: Chronic Priority: Medium Current Visit: Yes Qualifiers: Hypertension type: unspecified Qualified Code(s): I10 - Essential (primary) hypertension (4) Dementia SNOMED Code(s): 89679457 Code(s): F03.90 - UNSPECIFIED DEMENTIA WITHOUT BEHAVIORAL DISTURBANCE Status: Acute Priority: High Current Visit: Yes Qualifiers: Dementia type: Alzheimer's disease Alzheimer's disease onset: late-onset Dementia behavioral disturbance: without behavioral disturbance (5) Anemia SNOMED Code(s): 660303571 Code(s): D64.9 - ANEMIA, UNSPECIFIED Status: Acute Priority: Medium Current Visit: Yes Qualifiers: Anemia type: unspecified type Qualified Code(s): D64.9 - Anemia, unspecified - Problem List Review Problem List Initiated/Reviewed/Updated: Yes - My Orders Last 24 Hours: My Active Orders 09/25/20 08:33 Consult to Case Management/Drafting Layout Man [CONS] Routine OT Evaluation and Treatment [CONS] Routine PT Evaluation and Treatment [CONS] Routine 09/25/20 08:34 Bladder Scan [RC] ASDIRECTED 09/25/20 08:36 Aspiration Precautions [RC] ASDIRECTED 09/25/20 21:00 Pantoprazole [ProTONIX] 40 mg PO BEDTIME 09/26/20 Breakfast Regular Diet [DIET] 09/26/20 09:00 Potassium Chloride [Klor-Con M20] 40 meq PO BID - Plan Plan:: Assessment 85-year-old male with history of CVA and likely dementia has worsening of confusion over the last year that has severely worsened over the last few days. Patient is now unable to walk or dress himself. He became combative when EMS arrived and he was given Ativan causing sedation. Dementia with worsening confusion Failure to thrive at home * History of CVA * Worsening confusion over the last year * Negative CT scan of the head in the ED * No obvious metabolic or infectious causes * is unable to care for him at home * Will likely need placement Hypertension * Unknown last dose of blood pressure medication * Home medications include metoprolol. * states he was seen in the ED on 08/18/2020 and they stopped his hydrochlorothiazide and amlodipine * Blood pressures running in the 160s and 180 systolic in the ER Anemia, normochromic normocytic * Likely anemia of chronic disease Recent UTI * UA negative for infection today Plan * Admit to medical floor * Consult psychologist social * Restart home medications * Hydralazine for breakthrough hypertension * Repeat lab work in the morning * MRI of the brain without contrast tomorrow if patient can tolerate it * VTE prophylaxis with Lovenox * CODE STATUS, DNR/DNI 09/25/20 Patient remains quite confused, asking where he is. He remains quite pleasant. Currently denies any pain. Labs today were grossly unremarkable with no signs of active infection. Anemia has worsened all this is likely secondary to dilution from IV fluids. Hemoglobin is 10.6 today. MRI is ordered today. Have ordered PT/OT evaluation and social work/case management consult with plan of discharge to SNF. Pressure this morning is 118/89 which is greatly improved on his ED blood pressures. We will add aspiration precautions as patient is likely high risk. No signs of coughing while eating. We will continue to monitor. No need for lab work tomorrow and will consider repeat on . Nursing patient had straight catheterization performed in the ED and was noted to have some bleeding thereafter. Will monitor urine output and bladder scan/straight catheterize as needed. Should patient continue to retain urine he will have Saez catheter placed per protocol. 09/26/20 Patient remains very confused, probably more so than yesterday. He remains pleasant but has been trying to crawl out of bed and did not sleep well last night. No labs were obtained today. MRI was obtained yesterday and shows nothing acute, just senescent change. PT and OT have been working with the patient and are recommending SNF placement as he does not respond well to cues. We will start Seroquel 25 mg at bedtime. We will recheck BMP and magnesium tomorrow morning. We have not had any more urinary issues. He remains clinically stable awaiting discharge.
[2020-09-26] MEDS ORDERED: Potassium Chloride 20 MEQ Tab.ER PO SCH (09:00)
[2020-09-26] MEDS: Enoxaparin 40 MG/0.4 ML Syringe SUBCUT SCH (09:28)
[2020-09-26] MEDS: Clopidogrel 75 MG Tab PO SCH (09:28)
[2020-09-26] MEDS: Famotidine 20 MG Tab PO SCH (09:28)
[2020-09-26] MEDS: Metoprolol Succinate 50 MG Tab.ER PO SCH (09:29)
[2020-09-26] MEDS: Docusate Sodium 100 MG Cap PO SCH (09:30)
[2020-09-26] MEDS ORDERED: QUEtiapine 25 MG Tab PO SCH (21:00)
[2020-09-27] MEDS: Docusate Sodium 100 MG Cap PO SCH ×2 (00:40→10:13)
[2020-09-27] MEDS: Pantoprazole 40 MG Tab.CR PO SCH (00:40)
--- NOTE | 2020-09-27 07:35 | PCM.DCSUM1 ---
Discharge Summary - Hospital Course HPI Initial Comments: 85-year-old male with history of CVA was brought in by the [facility] with increasing confusion over the last 2 days. Apparently patient has becoming increasingly confused having more difficulties at home for 1 year. His states that over the last few days it has worsened and today he was able to walk or get around and so she called EMS. When the ambulance arrived they tried to help him get out of the house and he became combative. EMS did give him some Ativan and the patient has been asleep since he arrived in the emergency department. His denies any fever, chills, diarrhea, abdominal pain. She states he seems to hurt all over, but this is not worse. He has had no significant change in any other medical problems. CT of the head was done in the emergency department which showed no acute findings. Chest x-ray was negative also for acute findings. Apparently he was diagnosed with a UTI a couple weeks ago and was placed on antibiotic. UA here was negative for leukocytes or WBCs. There was a small amount of RBCs. Lab work was noncontributory. Blood pressure has been elevated since arrival. Diagnosis: Stroke: No - Discharge Data Discharge Date: 09/27/20 (Admit date: ) Discharge Disposition: DC/Tfer to SNF 03 Condition: Good - Referral to Home Health Primary Care Physician: PCP None - Discharge Diagnosis/Problem(s) (1) Confusion SNOMED Code(s): 212183819 ICD Code: R41.0 - DISORIENTATION, UNSPECIFIED Status: Acute Priority: High Current Visit: Yes (2) Failure to thrive SNOMED Code(s): 89136381 ICD Code: [id number] - Status: Acute Priority: High Current Visit: Yes Qualifiers: Failure to thrive age range: in adult Qualified Code(s): R62.7 - Adult failure to thrive (3) Hypertension SNOMED Code(s): 93354575 ICD Code: I10 - ESSENTIAL (PRIMARY) HYPERTENSION Status: Chronic Priority: Medium Current Visit: Yes Qualifiers: Hypertension type: unspecified Qualified Code(s): I10 - Essential (primary) hypertension (4) Dementia SNOMED Code(s): 38228908 ICD Code: F03.90 - UNSPECIFIED DEMENTIA WITHOUT BEHAVIORAL DISTURBANCE Status: Acute Priority: High Current Visit: Yes Qualifiers: Dementia type: Alzheimer's disease Alzheimer's disease onset: late-onset Dementia behavioral disturbance: without behavioral disturbance (5) Anemia SNOMED Code(s): 574003367 ICD Code: D64.9 - ANEMIA, UNSPECIFIED Status: Acute Priority: Medium Current Visit: Yes Qualifiers: Anemia type: unspecified type Qualified Code(s): D64.9 - Anemia, unspecified - Patient Summary/Data Consults: Consultations 09/25/20 08:33 Consult to Case Management/Retail Warehouse Supervisor [CONS] Routine OT Evaluation and Treatment [CONS] Routine PT Evaluation and Treatment [CONS] Routine Labs Pending at D/C: None Recommended Follow-up Testing/Procedures: Follow-up with PCP within 7-10 days of discharge, sooner if needed. -Recommend re-check CBC, CMP, magnesium at that visit Hospital Course: Arian was admitted to the hospital due to increased confusion and what appears to be baseline dementia. He has a history of CVA and on admission he is noted to be unable to walk or dresses self. Prior to coming to the emergency room he was given Ativan by EMS due to combativeness. CT in the ED was negative however senescent change and mucosal thickening were noted. On the floor patient received an MRI which showed prominent senescent change and mucosal thickening but no acute. He remained quite confused although this did somewhat wax and wane. He was noted to sundown significantly and was frequently up trying to get out of bed. He was working with PT and OT although I did have difficulty with him following cues. He was on aspiration precautions while here because he was high risk. Dietitian did see the patient and noted that he is had a very minimal weight loss since his last visit. His intake prior to coming appeared good although it did decrease while he was here. He did require straight catheterization due to urinary retention but this appears to have resolved. He was started on Seroquel 25 mg at bedtime with good results. This may need to be increased by the PCP in the future. All home medications were otherwise continued. Recommend continue PT/OT at SNF. Recommend patient follow-up with primary care provider within 7 to 10 days of discharge, sooner if needed. Recommend repeat CBC, CMP, and magnesium at that visit. He was accepted at [facility] and will discharge there today. - Patient Instructions Diet: Usual Diet as Tolerated Activity: As Tolerated Driving: Do Not Drive Showering/Bathing: May Shower Notify Provider of: Fever, Increased Pain, Nausea and/or Vomiting Other/Special Instructions: Follow-up with primary care provider within 7-10 days of discharge, sooner if needed. Resume home medications as directed. Patient was started on bedtime seroquel. This dosing may need to be increased in the future. Continue PT/OT at SNF. Should symptoms return or worsen, contact primary care provider or return to the Emergency Department. - Discharge Plan *PRESCRIPTION DRUG MONITORING PROGRAM REVIEWED*: No *COPY OF PRESCRIPTION DRUG MONITORING REPORT IN PATIENT ANJU: No Prescriptions/Med Rec: QUEtiapine [SEROquel] 25 mg PO BEDTIME #20 tablet Home Medications: Home Meds Clopidogrel [Plavix] 75 mg PO DAILY 09/23/19 [History] Docusate Sodium [Colace] 100 cap PO BID 09/23/19 [History] Famotidine [Acid Controller] 20 mg PO DAILY 09/23/19 [History] Loratadine [Claritin] 20 mg PO DAILY 09/23/19 [History] Metoprolol Succinate [Toprol Xl] 100 mg PO DAILY 09/23/19 [History] Potassium Chloride 10 meq PO DAILY 09/23/19 [History] Cholecalciferol (Vitamin D3) [Vitamin D3] 10 mcg PO DAILY 09/24/20 [History] Docusate Sodium 250 mg PO BID 09/24/20 [History] Lactulose [Cephulac] 10 - 15 ml PO DAILY 09/25/20 [History] Lansoprazole [Prevacid] 30 mg PO BEDTIME 09/25/20 [History] QUEtiapine [SEROquel] 25 mg PO BEDTIME #20 tablet 09/27/20 [Rx] Oxygen Therapy Mode: Room Air Forms: ED Department Discharge Referrals: Stewart Fregoso MD [Ordering Only Provider] - 10/04/20 1:15 pm ( at 1:15pm ) - Discharge Summary/Plan Comment DC Time >30 min.: Yes (45 mins ) - General Info Date of Service: 09/27/20 Admission Dx/Problem (Free Text: Admission Diagnosis/Problem Admission Diagnosis/Problem Failure to thrive Functional Status: Reports: Pain Controlled, Tolerating Diet, Ambulating, Urinating. Denies: New Symptoms - Review of Systems Systems Review Comment: Unable to obtain reliable ROS due to patient's baseline confusion. Clearance is somewhat more alert today though and does deny any current pain or other concerns. He does respond to some questions appropriately and than others inappropriately. - Patient Data Vitals - Most Recent: Last Vital Signs Temp 98.1 F 09/27/20 05:35 Pulse 71 09/27/20 05:35 Resp 16 09/27/20 05:35 BP 145/84 H 09/27/20 05:35 Pulse Ox 95 09/27/20 05:35 Weight - Most Recent: 172 lb 9.6 oz I&O - Last 24 hours: Intake & Output 09/26/20 09/27/20 09/27/20 22:59 06:59 14:59 Intake Total 640 300 Output Total 2400 Balance 640 -2100 Lab Results - Last 24 hrs: Laboratory Results - last 24 hr 09/27/20 Range/Units 06:30 Sodium 140 (136-145) mEq/L Potassium 3.8 (3.5-5.1) mEq/L Chloride 104 (98-107) mEq/L Carbon Dioxide 25 (21-32) mEq/L Anion Gap 14.8 (5-15) BUN 15 (7-18) mg/dL Creatinine 0.9 (0.7-1.3) mg/dL Est Cr Clr Drug Dosing 54.95 mL/min Estimated GFR (MDRD) > 60 (>60) mL/min BUN/Creatinine Ratio 16.7 (14-18) Glucose 99 (83-115) mg/dL Calcium 9.1 (8.5-10.1) mg/dL Magnesium 2.2 (1.8-2.4) mg/dl ROSY Results - Last 24 hrs: Microbiology 09/24/20 17:14 Aerobic Blood Culture - Preliminary Blood - Venous - Lab Draw NO GROWTH AFTER 2 DAYS Anaerobic Blood Culture - Preliminary NO GROWTH AFTER 2 DAYS 09/24/20 17:08 Aerobic Blood Culture - Preliminary Blood - Venous NO GROWTH AFTER 2 DAYS Anaerobic Blood Culture - Preliminary NO GROWTH AFTER 2 DAYS Med Orders - Current: Current Medications Acetaminophen (Tylenol) 650 mg PO Q4H PRN PRN Reason: Pain (Mild 1-3)/fever Clopidogrel Bisulfate (Plavix) 75 mg PO DAILY [facility] Last Admin: 09/26/20 09:28 Dose: 75 mg Documented by: Docusate Sodium (Colace) 100 mg PO BID [facility] Last Admin: 09/27/20 00:40 Dose: Not Given Documented by: Enoxaparin Sodium (Lovenox) 40 mg SUBCUT DAILY [facility] Last Admin: 09/26/20 09:28 Dose: 40 mg Documented by: Famotidine (Pepcid) 20 mg PO DAILY [facility] Last Admin: 09/26/20 09:28 Dose: 20 mg Documented by: Hydralazine HCl (Apresoline) 10 mg IVPUSH Q2H PRN PRN Reason: Hypertension Metoprolol Succinate (Toprol Xl) 100 mg PO DAILY [facility] Last Admin: 09/26/20 09:29 Dose: 100 mg Documented by: Ondansetron HCl (Zofran) 4 mg IV Q4H PRN PRN Reason: Nausea/Vomiting Pantoprazole Sodium (Protonix) 40 mg PO BEDTIME [facility] Last Admin: 09/27/20 00:40 Dose: Not Given Documented by: Quetiapine Fumarate (Seroquel) 25 mg PO BEDTIME [facility] Last Admin: 09/27/20 02:52 Dose: Not Given Documented by: Sodium Chloride (Saline Flush) 10 ml FLUSH ASDIRECTED PRN PRN Reason: Keep Vein Open Last Admin: 09/24/20 17:37 Dose: 10 ml Documented by: Discontinued Medications Ceftriaxone Sodium 2 gm/ (Sodium Chloride) 100 mls @ 200 mls/hr IV ONETIME ONE Stop: 09/24/20 17:14 Last Admin: 09/24/20 17:20 Dose: 200 mls/hr Documented by: Sodium Chloride (Normal Saline) 1,000 mls @ 125 mls/hr IV ASDIRECTED [facility] Last Admin: 09/24/20 17:20 Dose: 125 mls/hr Documented by: Magnesium Hydroxide (Milk Of Magnesia) 30 ml PO ONETIME ONE Stop: 09/25/20 09:01 Last Admin: 09/25/20 10:27 Dose: 30 ml Documented by: Magnesium Oxide (Magnesium Oxide) 400 mg PO ONETIME ONE Stop: 09/25/20 11:31 Last Admin: 09/25/20 20:13 Dose: Not Given Documented by: Magnesium Oxide (Magnesium Oxide) 400 mg PO ONETIME ONE Stop: 09/25/20 17:46 Last Admin: 09/25/20 20:14 Dose: Not Given Documented by: Magnesium Oxide (Magnesium Oxide) 400 mg PO ONETIME ONE Stop: 09/25/20 20:01 Last Admin: 09/25/20 20:12 Dose: 400 mg Documented by: Potassium Chloride (Klor-Con M20) 40 meq PO ONETIME ONE Stop: 09/25/20 11:31 Last Admin: 09/25/20 20:13 Dose: Not Given Documented by: Potassium Chloride (Klor-Con M20) 40 meq PO ONETIME ONE Stop: 09/25/20 17:46 Last Admin: 09/25/20 20:13 Dose: Not Given Documented by: Potassium Chloride (Klor-Con M20) 40 meq PO ONETIME ONE Stop: 09/25/20 20:01 Last Admin: 09/25/20 20:13 Dose: 40 meq Documented by: Potassium Chloride (Klor-Con M20) 40 meq PO BID [facility] Stop: 09/27/20 09:01 Last Admin: 09/26/20 15:34 Dose: Not Given Documented by: - Exam Quality Assessment: Reports: DVT Prophylaxis General: Reports: Alert, Cooperative, No Acute Distress. Denies: Oriented HEENT: Reports: Pupils Equal, Pupils Reactive, Mucous Membr. Moist/[place] Neck: Reports: Supple, Trachea Midline Lungs: Reports: Clear to Auscultation, Normal Respiratory Effort Cardiovascular: Reports: Regular Rate, Regular Rhythm GI/Abdominal Exam: Normal Bowel Sounds, Soft, Non-Tender, No Distention (Male) Exam: Deferred Rectal (Males) Exam: Deferred Back Exam: Reports: Normal Inspection, Full Range of Motion Extremities: Normal Inspection, Normal Range of Motion, Non-Tender, No Pedal Edema, Normal Capillary Refill Skin: Reports: Warm, Dry, Intact Neurological: Reports: No New Focal Deficit Psy/Mental Status: Reports: Alert. Denies: Agitated
[2020-09-27] MEDS: Famotidine 20 MG Tab PO SCH (10:13)
[2020-09-27] MEDS: Metoprolol Succinate 50 MG Tab.ER PO SCH (10:13)
[2020-09-27] MEDS: Clopidogrel 75 MG Tab PO SCH (10:13)
[2020-09-27] MEDS: Enoxaparin 40 MG/0.4 ML Syringe SUBCUT SCH (10:13)
== END 2020-09-27 11:30 | DRG 57 ==
LOC: JD.ED 16:38 → JD.MS 19:07
PROVIDERS: ADMIT Family Medicine; ATTEND Family Medicine
DX: R41.0 Disorientation, unspecified (principal); G30.1 Alzheimer's disease with late onset; F02.80 Dementia in other diseases classified elsewhere, unspecified severity, without behavioral disturbance, psychotic disturbance, mood disturbance, and anxiety; R62.7 Adult failure to thrive; I10 Essential (primary) hypertension; I48.91 Unspecified atrial fibrillation; D63.8 Anemia in other chronic diseases classified elsewhere; Z87.440 Personal history of urinary (tract) infections; Z20.822 Contact with and (suspected) exposure to COVID-19; R33.9 Retention of urine, unspecified; H54.7 Unspecified visual loss; F03.90 Unspecified dementia, unspecified severity, without behavioral disturbance, psychotic disturbance, mood disturbance, and anxiety; J45.909 Unspecified asthma, uncomplicated; M54.9 Dorsalgia, unspecified; G89.29 Other chronic pain; Z66 Do not resuscitate; Z86.73 Personal history of transient ischemic attack (TIA), and cerebral infarction without residual deficits; Z79.899 Other long term (current) drug therapy; Z98.890 Other specified postprocedural states; Z79.02 Long term (current) use of antithrombotics/antiplatelets; Z68.27 Body mass index [BMI] 27.0-27.9, adult
CPT/HCPCS: 36415; 51701; 51798; 70450; 70450-26; 70551; 70551-26; 71045; 71045-26; 80048; 80053; 81001; 83605; 83735; 84100; 84484; 85025; 85610; 85730; 86140; 87040; 93005; 93010; 96365; 97110-GO; 97110-GP; 97162-GP; 97165-GO; 97530-GO; 97530-GP; 99222; 99232; 99233; 99239; 99285; 99285-25; A9270-GY; J0696; J1650; J7030; U0002

== ENCOUNTER 2021-04-26 20:50 | Emergency (ER) | payer MEDICARE, BC, MEDICAID ==
[2021-04-26] MEDS ORDERED: Lactated Ringers 1,000 ML IV ONE (23:02)
[2021-04-26] MEDS ORDERED: Sodium Chloride 0.9% 10 ML Syringe FLUSH PRN (23:03)
--- NOTE | 2021-04-27 02:43 | EDM.PDOC ---
ED HPI GENERAL MEDICAL PROBLEM - General Chief Complaint: Genitourinary Problem Stated Complaint: [facility] Time Seen by Provider: 04/26/21 20:57 - History of Present Illness INITIAL COMMENTS - FREE TEXT/NARRATIVE: Patient arrived to ED via ambulance He is accompanied by and daughter He was referred to ED from long-term care facility Staff and family report swelling to genital area which began 4 days ago During that time he has also had decreased urine output via chronic catheter Patient denies chest pain, abdominal pain, or dyspnea No reported vomiting or diarrhea Patient has leg swelling which is much improved over past severity, per Patient had RLE arterial angioplasty few days ago at [facility] - Related Data Allergies Allergy/AdvReac Type Severity Reaction Status Date / Time No Known Allergies Allergy Verified 04/26/21 20:59 Home Meds: Home Meds Metoprolol Succinate [Toprol Xl] 50 mg PO BID 09/23/19 [History] Potassium Chloride 10 meq PO DAILY 09/23/19 [History] Cholecalciferol (Vitamin D3) [Vitamin D3] 10 mcg PO DAILY 09/24/20 [History] Lansoprazole [Prevacid] 30 mg PO DAILY 09/25/20 [History] Celecoxib [CeleBREX] 100 mg PO BEDTIME 04/27/21 [History] Donepezil [Aricept] 10 mg PO BEDTIME 04/27/21 [History] Melatonin 10 mg PO BEDTIME 04/27/21 [History] QUEtiapine [SEROquel] 50 mg PO DAILY 04/27/21 [History] QUEtiapine [SEROquel] 300 mg PO BEDTIME 04/27/21 [History] Rosuvastatin [Crestor] 5 mg PO DAILY 04/27/21 [History] Tamsulosin [Flomax] 0.4 mg PO BID 04/27/21 [History] traMADol HCl [Tramadol HCl] 50 mg PO QID 04/27/21 [History] Past Medical History HEENT History: Reports: Allergic Rhinitis, Impaired Vision Other HEENT History: wear glasses Cardiovascular History: Reports: Afib, Hypertension Respiratory History: Reports: Asthma, COPD Gastrointestinal History: Reports: Chronic Constipation, GERD Genitourinary History: Reports: UTI, Recurrent, Other (See Below) Other Genitourinary History: Indwelling Catheter Musculoskeletal History: Reports: Back Pain, Chronic Neurological History: Reports: CVA, Other (See Below) Other Neuro History: dementia. RT sided stroke in 2010 per Psychiatric History: Reports: Dementia - Infectious Disease History Infectious Disease History: Reports: C-Difficile - Past Surgical History HEENT Surgical History: Reports: Adenoidectomy, Cataract Surgery, Tonsillectomy GI Surgical History: Reports: Hernia, Inguinal Social & Family History - Tobacco Use Tobacco Use Status *Q: Unknown Ever Used Tobacco - Caffeine Use Caffeine Use: Reports: Coffee Other Caffeine Use: 2 cups coffee Caffeine Use Comment: Unknown. - Living Situation & Occupation Living situation: Reports: , with Spouse Occupation: Retired ED ROS GENERAL - Review of Systems Review Of Systems: See Below (Limited due to dementia) ED EXAM, GENERAL - Physical Exam Exam: See Below Free Text/Narrative:: Constitutional - awake; alert; no acute distress Head - no facial swelling or weakness Eyes - extra ocular motion intact; conjunctiva normal ENT - no nasal deformity; no epistaxis; normal phonation Neck - no swelling Respiratory - normal respiratory effort; no crackles or wheezing; no stridor Cardiovascular - regular rhythm; normal rate; S1; S2; grade 1/6 systolic murmur GI/Abdomen - normal bowel sounds; soft; no tenderness; no rebound; no guarding; no mass Genitourinary - indwelling urethral catheter; uncircumcised genitalia; mild, flaccid edema of penis without induration, erythema, or lesion Musculoskeletal - no gross deformity; mild edema of both legs up to knees Skin - warm; dry; healing right inguinal incision with no erythema or exudate Neurologic - normal speech; no weakness Psychiatric - normal mood and affect; memory limited; attention normal Course - Vital Signs Text/Narrative:: . Considered etiologies included: edema, anasarca, renal dysfunction, heart failure, dehydration, metabolic derangement Symptoms and examination were discussed There were no findings for urogenital cellulitis There was mild hypotension at evaluation by automobile service writer Investigations were initiated Review of notes sent from care facility suggested 100 ml output from 1900 through 2300 Empiric IV fluid therapy was provided with improvement in blood pressure and urine output Lab results showed evidence of uremia consistent with dehydration Results and condition were reviewed with family Genital swelling was presumed secondary to recent inguinal site vascular procedure There was no indication for hospital admission Patient's offered that patient does not spontaneously drink due to his dementia, and needs reminders from staff Recommendations for same were included in patient's discharge instructions RN was also requested to communicate this to care facility staff during discharge report Patient was felt to be stable for outpatient follow-up Return precautions were provided Last Recorded V/S: Last Vital Signs Temp 36.6 C 04/26/21 20:57 Pulse 99 04/26/21 20:57 Resp 16 04/26/21 20:57 BP 114/69 04/26/21 20:57 Pulse Ox 98 04/26/21 20:57 - Orders/Labs/Meds Labs: Laboratory Tests 04/26/21 04/26/21 04/26/21 Range/Units 21:30 21:30 21:30 WBC 6.45 (4.23-9.07) K/mm3 RBC 3.31 L (4.63-6.08) M/mm3 Hgb 8.4 L D (13.7-17.5) gm/dl Hct 27.4 L (40.1-51.0) % MCV 82.8 D (79.0-92.2) fl MCH 25.4 L (25.7-32.2) pg MCHC 30.7 L (32.2-35.5) g/dl RDW Std Deviation 52.8 H (35.1-43.9) fL Plt Count 231 (163-337) K/mm3 MPV 11.5 (9.4-12.3) fl Neut % (Auto) 57.4 (34.0-67.9) % Lymph % (Auto) 19.2 L (21.8-53.1) % [place] % (Auto) 13.5 H (5.3-12.2) % Eos % (Auto) 9.1 H (0.8-7.0) Baso % (Auto) 0.3 (0.1-1.2) % Neut # (Auto) 3.70 (1.78-5.38) K/mm3 Lymph # (Auto) 1.24 L (1.32-3.57) K/mm3 [place] # (Auto) 0.87 H (0.30-0.82) K/mm3 Eos # (Auto) 0.59 H (0.04-0.54) K/mm3 Baso # (Auto) 0.02 (0.01-0.08) K/mm3 Sodium 144 (136-145) mEq/L Potassium 4.6 (3.5-5.1) mEq/L Chloride 109 H (98-107) mEq/L Carbon Dioxide 28 (21-32) mEq/L Anion Gap 11.6 (5-15) BUN 28 H (7-18) mg/dL Creatinine 1.0 (0.7-1.3) mg/dL Est Cr Clr Drug Dosing TNP Estimated GFR (MDRD) > 60 (>60) mL/min BUN/Creatinine Ratio 28.0 H (14-18) Glucose 113 H (70-99) mg/dL Calcium 8.0 L (8.5-10.1) mg/dL Total Bilirubin 0.2 (0.2-1.0) mg/dL AST 8 L (15-37) U/L ALT 10 L (16-63) U/L Alkaline Phosphatase 83 (46-116) U/L NT-Pro-B Natriuret Pep 5294 H (0-450) pg/mL Total Protein 6.0 L (6.4-8.2) g/dl Albumin 2.4 L (3.4-5.0) g/dl Globulin 3.6 gm/dL Albumin/Globulin Ratio 0.7 L (1-2) Urine Color (Yellow) Urine Appearance (Clear) Urine pH (5.0-8.0) Ur Specific [place] (1.005-1.030) Urine Protein (Negative) Urine Glucose (UA) (Negative) Urine Ketones (Negative) Urine Occult Blood (Negative) Urine Nitrite (Negative) Urine Bilirubin (Negative) Urine Urobilinogen (0.2-1.0) Ur Leukocyte Esterase (Negative) Urine RBC (0-5) /hpf Urine WBC (0-5) /hpf Ur Squamous Epith Cells (0-5) /hpf Urine Bacteria (FEW) /hpf Urine Mucus (FEW) /hpf 04/26/21 Range/Units 22:09 WBC (4.23-9.07) K/mm3 RBC (4.63-6.08) M/mm3 Hgb (13.7-17.5) gm/dl Hct (40.1-51.0) % MCV (79.0-92.2) fl MCH (25.7-32.2) pg MCHC (32.2-35.5) g/dl RDW Std Deviation (35.1-43.9) fL Plt Count (163-337) K/mm3 MPV (9.4-12.3) fl Neut % (Auto) (34.0-67.9) % Lymph % (Auto) (21.8-53.1) % [place] % (Auto) (5.3-12.2) % Eos % (Auto) (0.8-7.0) Baso % (Auto) (0.1-1.2) % Neut # (Auto) (1.78-5.38) K/mm3 Lymph # (Auto) (1.32-3.57) K/mm3 [place] # (Auto) (0.30-0.82) K/mm3 Eos # (Auto) (0.04-0.54) K/mm3 Baso # (Auto) (0.01-0.08) K/mm3 Sodium (136-145) mEq/L Potassium (3.5-5.1) mEq/L Chloride (98-107) mEq/L Carbon Dioxide (21-32) mEq/L Anion Gap (5-15) BUN (7-18) mg/dL Creatinine (0.7-1.3) mg/dL Est Cr Clr Drug Dosing Estimated GFR (MDRD) (>60) mL/min BUN/Creatinine Ratio (14-18) Glucose (70-99) mg/dL Calcium (8.5-10.1) mg/dL Total Bilirubin (0.2-1.0) mg/dL AST (15-37) U/L ALT (16-63) U/L Alkaline Phosphatase (46-116) U/L NT-Pro-B Natriuret Pep (0-450) pg/mL Total Protein (6.4-8.2) g/dl Albumin (3.4-5.0) g/dl Globulin gm/dL Albumin/Globulin Ratio (1-2) Urine Color Yellow (Yellow) Urine Appearance Slt cloudy H (Clear) Urine pH 5.5 (5.0-8.0) Ur Specific [place] > or = 1.030 (1.005-1.030) Urine Protein 1+ H (Negative) Urine Glucose (UA) Negative (Negative) Urine Ketones 1+ H (Negative) Urine Occult Blood 1+ H (Negative) Urine Nitrite Negative (Negative) Urine Bilirubin Negative (Negative) Urine Urobilinogen 1.0 (0.2-1.0) Ur Leukocyte Esterase 1+ H (Negative) Urine RBC 10-20 H (0-5) /hpf Urine WBC 40-50 H (0-5) /hpf Ur Squamous Epith Cells 0-5 (0-5) /hpf Urine Bacteria Moderate H (FEW) /hpf Urine Mucus Few (FEW) /hpf Meds: Medications Discontinued Medications Generic Name Dose Route Start Last Admin Trade Name Freq PRN Reason Stop Dose Admin Lactated Ringer's 1,000 mls @ 500 mls/hr 04/26/21 23:02 04/26/21 23:18 Ringers, Lactated IV 04/27/21 01:01 500 mls/hr .BOLUS ONE Administration Sodium Chloride 10 ml 04/26/21 23:03 04/26/21 23:15 Sodium Chloride 0.9% 10 Ml Syringe FLUSH 10 ml ASDIRECTED PRN Administration Keep Vein Open - Radiology Interpretation Free Text/Narrative:: XR chest, AP portable, interpreted by automobile service writer: RAÚL Departure - Departure Time of Disposition: 02:37 Disposition: Home, Self-Care 01 Clinical Impression: Dehydration, Swelling of penis - Discharge Information *PRESCRIPTION DRUG MONITORING PROGRAM REVIEWED*: No *COPY OF PRESCRIPTION DRUG MONITORING REPORT IN PATIENT ANJU: Not Applicable Instructions: Dehydration, Adult Referrals: Stewart Fregoso MD [Primary Care Provider] - Forms: ED Department Discharge Additional Instructions: Return if condition worsens May resume general activity and regular diet as tolerated Oral fluid intake needs to be encouraged and reminded frequently, as patient may not drink adequate fluid spontaneously Monitor fluid intake and output every 6 hours for next 4 days; notify provider if urine output less than 50 mL/h Continue usual medications Follow-up with primary care provider is recommended in 3 to 5 days Sepsis Event Note (ED) - Evaluation Sepsis Screening Result: No Definite Risk
--- NOTE | 2021-04-27 10:04 | CR ---
Chest: Frontal view of the chest was obtained. Comparison: Prior chest x-ray of 09/24/20. Heart size and mediastinum are stable from prior chest x-ray. Slight atelectasis is seen within the left lung base. Lungs otherwise are clear. Bony structures show nothing acute. Impression: 1. Slight left basilar atelectasis. 2. Nothing acute is appreciated on frontal chest x-ray. Diagnostic code #2
== END 2021-04-27 04:11 | disposition home or self-care (01) ==
LOC: JD.ED 20:50
DX: N48.29 Other inflammatory disorders of penis (principal); E86.0 Dehydration; I48.91 Unspecified atrial fibrillation; I10 Essential (primary) hypertension; J44.9 Chronic obstructive pulmonary disease, unspecified; K21.9 Gastro-esophageal reflux disease without esophagitis; Z86.73 Personal history of transient ischemic attack (TIA), and cerebral infarction without residual deficits; R82.71 Bacteriuria
CPT/HCPCS: 36415; 71045; 80053; 81001; 83880; 85025; 87086; 87088; 87186; 99284; J7120; 99283

== ENCOUNTER 2023-03-21 20:56 | Emergency (ER) | payer MEDICARE, BC, MEDICAID ==
[2023-03-21 21:56] LABS: HEMATOCRIT 35.5 % (40.1-51.0); HEMOGLOBIN 11.5 gm/dl (13.7-17.5); MEAN CORPUSCULAR HEMOGLOBIN 29.3 pg (25.7-32.2); MEAN CORPUSCULAR HGB CONC 32.4 g/dl (32.2-35.5); MEAN CORPUSCULAR VOLUME 90.3 fl (79.0-92.2); MEAN PLATELET VOLUME 11.9 fl (9.4-12.3); PLATELET COUNT,PLT 190 K/mm3 (163-337); RED BLOOD CELL COUNT 3.93 M/mm3 (4.63-6.08); WHITE BLOOD CELL COUNT,WBC 11.37 K/mm3 (4.23-9.07)
[2023-03-21 22:16] LABS: A/G RATIO 0.9 (1-2); ALBUMIN 3.3 g/dl (3.4-5.0); ANION GAP 11.5 (5-15); BILIRUBIN TOTAL 0.3 mg/dL (0.2-1.0); BUN/CREATININE RATIO 21.5 (14-18); C-REACTIVE PROTEIN 0.6 mg/dL (<1.0); CALCIUM 8.7 mg/dL (8.5-10.1); CREATININE 1.3 mg/dL (0.7-1.3); EST CRCL DRUG DOSING (CG) 35.44 mL/min; POTASSIUM,K 4.5 mEq/L (3.5-5.1); PROTEIN TOTAL,TP 6.8 g/dl (6.4-8.2)
[2023-03-21 22:20] LABS: BAND PERCENT MAN 0 % (0-10); BASOPHILS PERCENT MAN 0 (0.2-1.2); EOSINOPHILS PERCENT MAN 2 % (0.8-7.0); LYMPHOCYTES % ATYPICAL MANUAL 0 %; LYMPHOCYTES PERCENT MAN 11 % (20-40); METAMYELOCYTE PERCENT MAN 1; MONOCYTES PERCENT MAN 4 % (2-10)
[2023-03-21 22:21] LABS: PLATELET COUNT ESTIMATE ADEQUATE; TOXIC GRANULATION 1+ SLIGHT
[2023-03-21 22:40] LABS: CORONAVIRUS COVID-19 NAA NEGATIVE (NEGATIVE); INFLUENZA A NAA NEGATIVE (NEGATIVE); RESPIRATORY SYNCYTIAL VIR NAA NEGATIVE (NEGATIVE)
== END 2023-03-21 23:56 | disposition home or self-care (01) ==
LOC: JD.ED 20:56
DX: R40.4 Transient alteration of awareness (principal); I48.91 Unspecified atrial fibrillation; I10 Essential (primary) hypertension; J44.9 Chronic obstructive pulmonary disease, unspecified; K21.9 Gastro-esophageal reflux disease without esophagitis; Z87.891 Personal history of nicotine dependence; Z20.822 Contact with and (suspected) exposure to COVID-19; Z79.899 Other long term (current) drug therapy
CPT/HCPCS: 0241U; 36415; 80053; 84484; 85007; 85027; 86140; 87086; 87088; 87186; 99284; 99283